=== PATIENT | male | born 1945 | race Caucasian/White ===

== ENCOUNTER 2020-01-03 07:39 | Outpatient (CLI) | payer MEDICARE, SELFPAY ==
--- NOTE | ~2020-01-03 | XR_ITS ---
EXAMINATION: XR chest 2V 01/03/2020 08:00 INDICATION: Prostate cancer PROCEDURE: 2 view chest COMPARISON: 10/25/2012 FINDINGS: The lungs are clear. The cardiomediastinal silhouette is within normal limits. There are no pleural effusions. There is no pneumothorax suspected. IMPRESSION: 1: NO ACUTE CARDIOPULMONARY DISEASE. Reviewed, dictated and finalized at location A.
--- NOTE | ~2020-01-03 | NM_ITS ---
EXAMINATION: NM bone scan whole body DATE: 01/03/2020 12:45 INDICATION: Prostate cancer. TECHNIQUE: 23.51 mCi Tc-99m HDP was administered intravenously. Delayed whole-body scintigrams were obtained. COMPARISON: CT abdomen and pelvis 01/03/2020, bone scan 04/12/2010 FINDINGS: There is increased activity at right L4-L5 facet joint correlating with osteoarthritis by C T. There is increased activity at right knee joint without radiographic comparison, likely osteoarthr itis. IMPRESSION: 1. No evidence of metastatic disease. Reviewed, dictated and finalized at location A.
--- NOTE | ~2020-01-03 | CT_ITS ---
EXAMINATION: CT abdomen pelvis w con DATE: 01/03/2020 08:29 INDICATION: Prostate cancer. TECHNIQUE: Computed tomography (CT) of the abdomen and pelvis was performed with 100 mL Omnipaque 350 intravenous contrast. Automated exposure control and iterative reconstruction technique were employe d. The dose-length product was 266.64 mGy-cm. COMPARISON: None. FINDINGS: The visualized portions of the lung bases demonstrate mild atelectasis. No pleural effusion . The heart size is normal. There are coronary artery calcifications. No pericardial effusion. Calcif ications in the liver are consistent with old granulomatous disease. The gallbladder, spleen, pancrea s, adrenal glands, and right kidney are normal. There are cysts in left kidney including peripelvic c ysts measuring up to 3.5 cm. The prostate is mildly enlarged. There are no dilated loops of bowel. Th e appendix is normal. There are no pathologically enlarged lymph nodes. There is no free intraperiton eal fluid. There is moderate lumbar spondylosis. IMPRESSION: 1. No evidence of metastatic disease. Reviewed, dictated and finalized at location A.
[2020-01-03 08:13] LABS: Estimated Glomerular Filt Rate > 60
== END 2020-01-03 07:40 | disposition home or self-care (01) ==
LOC: ANHIMG 07:43
PROVIDERS: PCP Internal Medicine; Visit Provider Urology
DX: C61 Malignant neoplasm of prostate (principal)
CPT/HCPCS: 36415; 71046; 74177; 78306; A9561; Q9967

== ENCOUNTER 2020-02-02 09:55 | Outpatient (CLI) | payer MEDICARE, SELFPAY ==
--- NOTE | 2020-02-02 11:02 | ECG_ITS ---
Measurements Intervals [place] Rate: 51 P: 62 [place]: 103 QRS: 32 QRSD: 83 T: 49 QT: 449 QTc: 417 Interpretive Statements SINUS BRADYCARDIA WITH SHORT [place] INTERVAL BASELINE ARTIFACT- I, II, III, AVR, AVL, AVF, V1-V6 BORDERLINE ECG Electronically Signed On 02-02-2020 11:48:24 CDT by Sarbjit Salgado D.O.
[2020-02-02 11:32] LABS: Basophils Percent Auto 0.5 % (0.2-1.2); Eosinophils Absolute Auto 0.1 K/mm3 (0-0.3); Eosinophils Percent Auto 0.9 % (0-4.4); Hematocrit 43.1 % (42.0-52.0); Immature Granulocyte Absolute 0.03 K/mm3 (0.00-0.031); Immature Granulocyte Percent A 0.5 % (0-0.5); Lymphocytes Absolute Auto 1.69 K/mm3 (0.9-3.2); Lymphocytes Percent Auto 26.3 % (18.3-44.2); Mean Corpuscular HGB Conc 32.5 g/dl (32-36); Mean Corpuscular Hemoglobin 29.3 pg (26-34); Mean Corpuscular Volume 90.2 fl (80-100); Mean Platelet Volume 11.1 fl (7.4-10.4); Monocytes Absolute Auto 0.6 K/mm3 (0.1-0.6); Monocytes Percent Auto 8.7 % (2.6-8.5); Neutrophils Absolute Auto 4.1 K/mm3 (1.3-6.7); Neutrophils Percent Auto 63.1 % (45.5-73.1); Platelet Count Result 239 k/mm3 (150-375); Red Blood Count 4.78 M/mm3 (4.6-6.20); Red Cell Distribution Width 13.2 % (11.5-14.5); White Blood Count 6.4 K/mm3 (4.5-10.0)
[2020-02-02 11:40] LABS: INR 0.9; Prothrombin Time 12.2 Seconds (11.1-14.7)
[2020-02-02 11:41] LABS: Partial Thromboplastin Time 25.3 SECONDS (22.3-36.8)
[2020-02-02 11:45] LABS: Add Urine Microscopic? YES; Appearance Urine Clear (Clear); Bilirubin Urine Negative (Negative); Blood Urine 1+ (Negative); Color Urine Yellow (Yellow); Glucose Urine UA Negative (Negative); Ketones Urine Negative (Negative); Leukocyte Esterase Ur Negative LEU/UL (Negative); Mucus Urine Rare /lpf; Nitrate Urine Negative (Negative); Protein Urine Negative (Negative); Urobilinogen Urine Negative mg/dL (<2.0); WBC Urine 0-3 /hpf
[2020-02-02 11:56] LABS: Alanine Aminotransferase 27 U/L (4-50); Albumin Level 4.4 g/dL (3.5-5.1); Alkaline Phosphatase 60 U/L (38-126); Aspartate Amino Transferase 46 U/L (17-59); Bilirubin,Total 0.5 mg/dL (0.2-1.3); Blood Urea Nitrogen 17 mg/dL (9-20); Carbon Dioxide 29 mmol/L (22-30); Chloride 105 mmol/L (98-107); Estimated Glomerular Filt Rate > 60; Glucose 97 mg/dL (75-110); Potassium 4.1 mmol/L (3.4-5.0); Sodium 137 mmol/L (137-145)
== END 2020-02-02 09:56 | disposition home or self-care (01) ==
PROVIDERS: PCP Internal Medicine; Visit Provider Urology
DX: Z01.818 Encounter for other preprocedural examination (principal); C61 Malignant neoplasm of prostate; I10 Essential (primary) hypertension
CPT/HCPCS: 36415; 80053; 81001; 85025; 85610; 85730; 86850; 86900; 86901; 93005

== ENCOUNTER 2020-02-07 00:24 | Outpatient (CLI) | payer MEDICARE, SELFPAY ==
[2020-02-07 18:39] LABS: SARS-CoV-2 RNA PCR Negative
== END 2020-02-07 00:25 | disposition home or self-care (01) ==
LOC: ANHCOVIDDT 00:25
PROVIDERS: PCP Internal Medicine; Visit Provider Urology
DX: Z01.812 Encounter for preprocedural laboratory examination (principal); Z20.828 Contact with and (suspected) exposure to other viral communicable diseases
CPT/HCPCS: 87635; C9803; U0003

== ENCOUNTER 2020-02-09 01:10 | Day surgery (SDC) | payer MEDICARE, SELFPAY ==
[2020-02-02 11:08] VITALS: BP 123/75; PULSE 63; RESP 18; TEMP 36.6; O2SAT 95; BMI 22.2
--- NOTE | 2020-02-07 07:16 | PM.IMHP ---
H&P: HPI History of Present Illness Chief complaint: prostate CA Narrative: Indra Hodgson is a 74 year old male Who was found in October 2019 to have a PSA of 21.1. At the time of initial presentation in 2015 with an elevated PSA patient was not agreeable to a biopsy. He eventually underwent prostate biopsy which showed 11 of 12 cores with [place] 4+3=7 adenocarcinoma. Additionally, he had extensive intraductal carcinoma on several of these biopsy cores. Staging CT scan of the abdomen and pelvis with contrast, bone scan and chest x-ray showed no evidence of metastatic disease. After exhaustive discussion of the therapeutic options for this high risk prostate cancer he has elected for robotic assisted radical prostatectomy with bilateral pelvic lymphadenectomy. He is aware he may need adjuvant therapy postoperatively. His prostate measured 29.6 g at the time of transrectal ultrasonography. Alternative treatment options (including active surveillance, radiation therapy in its various forms and androgen ablation) have been discussed. We've also discussed complications of this procedure including, but not limited to, failure to control his cancer, adverser cardiopulmonary events, rectal injury, need to convert to an open procedure, urinary incontinence and erectile dysfunction. Review of Systems Constitutional: Constitutional: Denies chills, Denies fatigue, Denies fever(s) and Denies headache(s) Eyes: Eyes: Denies blurry vision ENT: Denies vertigo, Denies dizziness, Denies headache(s) and Denies sore throat Cardiovascular: Cardiovascular: Denies chest pain, Denies syncope, Denies lightheadedness, Denies palpitations, Denies dyspnea and Denies dyspnea on exertion Respiratory: Respiratory: Denies hemoptysis, Denies dyspnea and Denies dyspnea on exertion Gastrointestinal: Gastrointestinal: Denies melena, Denies bloating, Denies hematochezia, Denies change in bowel habits, Denies change in stool character, Denies constipation, Denies diarrhea and Denies vomiting Genitourinary: Genitourinary: Denies hematuria, Denies dysuria, Denies testicular pain, Denies urinary frequency, Denies urinary hesitancy and Denies urinary urgency Integumentary/Breasts: Skin/Breast: Denies pruritus, Denies lesions and Denies rash Neurologic: Denies confusion, Denies vertigo, Denies dizziness, Denies syncope and Denies headache(s) Psychiatric: Psychiatric: Denies anxiety, Denies change in appetite and Denies confusion Endocrine: Endocrine: Denies fatigue and Denies palpitations PMFSH Past Medical History Medical History ASHD (arteriosclerotic heart disease) Benign essential hypertension BPH (benign prostatic hyperplasia) Colon cancer screening Encounter for general adult medical examination w/o abnormal findings Encounter for Medicare annual wellness exam Erectile dysfunction GERD (gastroesophageal reflux disease) Hyperlipidemia On ferry [place] agent drug therapy [place] on CPAP Psoriasis Seasonal allergies Social History Social History Smoking status: Never smoker Alcohol intake: current Gender identity (if verbalized by the patient): Male Meds Home Medications and Allergies Home Medications Medication Instructions Recorded Confirmed Type aspirin 81 mg tablet,delayed 81 mg PO DAILY 07/14/19 02/02/20 History release coenzyme Q10 100 mg capsule 100 mg PO DAILY 07/14/19 02/02/20 History finasteride 5 mg tablet 5 mg PO DAILY 07/14/19 02/02/20 History folic acid 1 mg tablet 1 mg PO DAILY 07/14/19 02/02/20 History lisinopril 5 mg tablet 5 mg PO DAILY 07/14/19 02/02/20 History mecobalamin (vitamin B12) 1,000 1,000 mcg SUBLINGUAL DAILY 07/14/19 02/02/20 History mcg disintegrating tablet,sublingual multivitamin 1 tablet PO DAILY 07/14/19 02/02/20 History sildenafil 50 mg tablet 50 mg PO DAILY PRN 07/14/19 02/02/20 History atorvastatin 40 m
[2020-02-09] VITALS (14 sets, daily range): BP systolic 94–173; BP diastolic 46–110; PULSE 53–78; RESP 14–20; TEMP 36.2–37.4; O2SAT 96–100
--- NOTE | 2020-02-09 06:48 | P.PNAN_ITS ---
Anes - Initial Pre Proc Eval Procedure: Operation Date: 02/09/20 07:30 Proposed Procedures p Robotic Assisted Laparoscopic Prostatectomy with Bilateral Pelvic Lymph Node Dissection - Facundo Estrada MD Date/Time: 02/09/20 06:49 Surgeon: Facundo Estrada MD Pre Op Diagnosis: prostate CA Patient Data Age: 74 Gender: M Height: 5 ft 8 in Weight: 66.3 kg Last Vital Signs Temp 36.6 C 02/02/20 11:08 Pulse 63 02/02/20 11:08 Resp 18 02/02/20 11:08 BP 123/75 02/02/20 11:08 Pulse Ox 95 02/02/20 11:08 Allergies Allergy/AdvReac Type Severity Reaction Status Date / Time No Known Allergies Allergy Unverified 02/02/20 11:02 Home Medications Medication Instructions Recorded Confirmed Type aspirin 81 mg tablet,delayed 81 mg PO DAILY 07/14/19 02/02/20 History release coenzyme Q10 100 mg capsule 100 mg PO DAILY 07/14/19 02/02/20 History finasteride 5 mg tablet 5 mg PO DAILY 07/14/19 02/02/20 History folic acid 1 mg tablet 1 mg PO DAILY 07/14/19 02/02/20 History lisinopril 5 mg tablet 5 mg PO DAILY 07/14/19 02/02/20 History mecobalamin (vitamin B12) 1,000 1,000 mcg SUBLINGUAL DAILY 07/14/19 02/02/20 History mcg disintegrating tablet,sublingual multivitamin 1 tablet PO DAILY 07/14/19 02/02/20 History sildenafil 50 mg tablet 50 mg PO DAILY PRN 07/14/19 02/02/20 History atorvastatin 40 mg tablet 40 mg PO DAILY #90 tablet 08/03/19 02/02/20 Rx betamethasone dipropionate 1 applic TOPICAL DAILY PRN 02/02/20 02/02/20 History Patient hx anesthesia problems: none Family hx anesthesia problems: none PMFSH Past Medical History Medical History ASHD (arteriosclerotic heart disease) Benign essential hypertension BPH (benign prostatic hyperplasia) Colon cancer screening Encounter for general adult medical examination w/o abnormal findings Encounter for Medicare annual wellness exam Erectile dysfunction GERD (gastroesophageal reflux disease) Hyperlipidemia On nursing home drug therapy [place] on CPAP Psoriasis Seasonal allergies Social History Social History Smoking status: Never smoker Alcohol intake: current Gender identity (if verbalized by the patient): Male Anes - Eval Final PreProcedure Day of Procedure 02/09/20 06:49 Patient weight: normal Heart: regular rate and rhythm Lungs: clear to auscultation Airway: Mallampati scale class 1 Neurological: alert and oriented Last oral intake: >/= 8 hours ASA classification: III Emergent: no Anesthetic plan: proceed Anesthesia type and monitoring: general ETT and standard monitoring Informed Consent: The patient's anesthetic plan and its attendant risks and benefits were discussed with the patient/family/POA. Questions were solicited an d answers provided to the satisfaction of the patient/family/POA.
[2020-02-09] MEDS: LACTATED RINGERS 1,000 ML 30 ML IV CONT ×2 (06:55→11:00)
--- NOTE | 2020-02-09 07:11 | WPDHPUPDATE1 ---
History and Physical Update Update Date/Time: 02/09/20 07:11 History and Physical has been reviewed, including an updated exam of the patient. There are NO changes in the patient's condition. Risks, benefits, and alternatives have been discussed and questions answered. Patient agrees to proceed with procedure.
[2020-02-09] MEDS: ceFAZolin 2 GM/D5W 50 ML 2 GM/50 ML BAG IVPB (07:27)
--- NOTE | 2020-02-09 11:10 | PM.PROC ---
Procedure Note - Detailed Date of procedure: 02/09/20 Pre-op diagnosis: prostate CA Post-op diagnosis: same Procedure performed: 1. Robotic-assisted radical prostatectomy. 2. Bilateral pelvic lymphadenectomy. Description of procedure: The patient was brought to the operative suite, where he was prepped and draped in routine sterile fashion while in a dorsal lithotomy, deep Trendelenburg position. A supraumbilical 10 mm trocar was placed after insufflation of the abdomen with a Veress needle. Three robotic ports were then placed under direct vision. Two of these were placed in the right lower quadrant - 10 cm and 20 cm lateral to, and in line with, the umbilicus. A third robotic trocar was placed 10 cm to the left of the umbilicus, and 20 cm to the left of the umbilicus, a 12 mm standard laparoscopic trocar was placed to be used as an assistant director of public works port. Lastly, a 5 mm trocar was placed in the left upper quadrant midway between the umbilicus and the left robotic trocar. Attention was then turned to the prostatectomy. I opted for a posterior approach in this patient. An incision was made in the parietal peritoneum along the posterior bladder/posterior prostate about 2 cm above the reflection of the peritoneum over the anterior rectum. The seminal vesicles and vas deferens were immediately identified. Dissection is undertaken in a fashion so as to avoid electrocautery as much as possible, particularly near the tips of the seminal vesicles. Dissection was also carried out in the midline so as to avoid any encounters with the ureters. The vas deferens and the seminal vesicles were dissected in their entirety to the base of the prostate. The plane anterior to Denoviller's fascia, anterior to the rectum and posterior to the prostate was then developed. I then dropped the bladder by incising the anterior parietal peritoneum just lateral to the median umbilical ligaments bilaterally. The bladder was dropped from the anterior abdominal and pelvic wall. The endopelvic fascia was identified and incised bilaterally, allowing for dissection of the posterior-lateral aspect of the prostate. The puboprostatic ligaments were transected near their origin from the posterior pubic ramus. This posterior lateral dissection of the prostate is also undertaken in a fashion so as to avoid electrocautery as much as possible. The dorsal vein of the penis is then secured with an 0 -Vicryl ligature. Attention is then turned to the bladder neck. The anterior bladder neck is incised at the vesico-prostatic junction. The previously placed urethral catheter was drawn through the urethrotomy. A very small bladder neck was maintained throughout the remainder of this dissection. The posterior bladder neck was incised in a fashion so as to avoid any injury to the ureteral orifices. Again, the small aperture of the bladder neck was maintained. The previously dissected vas deferens and the seminal vesicles were brought through the posterior bladder neck incision. The lateral prostatic pedicles were then carefully dissected from the lateral aspect of the prostate bilaterally. The prostatic pedicles were secured with Weck clips and transected. The neurovascular bundles were carefully dissected from the posterior-lateral aspect of the prostate. The dorsal vein of the penis was incised with electrocautery. Using cold scissors, the urethra was incised. After withdrawing the previously placed urethral catheter, the posterior urethra was sharply incised, as was the rectalurethralis muscle. Attention was then turned to a bilateral pelvic lymphadenectomy. The limits of this dissection were similar bilaterally. Specifically, the limits were the bifurcation of the common iliac vein proximally, the inguinal ligament distally, the obturator nerve posteriorly and the anterior aspect to the external iliac vein laterally. This dissection was undertaken with care to avoid any injury to the obturator nerve. The
--- NOTE | 2020-02-09 11:20 | SUR.PHASEI ---
1105; PT SHIVERING. 1120; PT AWAKE AND ALERT. STILL SHIVERING.
[2020-02-09] MEDS: MEPERIDINE HCL INJ 50 MG/ML AMPUL 25 MG IV PUSH (11:27)
--- NOTE | 2020-02-09 12:37 | SUR.PHASEI ---
1130; DR BERG AT BEDSIDE. VISUALIZED BLOODY URINE IN [place]AN[place].
--- NOTE | 2020-02-09 12:40 | ADMGEN ---
This patient, Indra Hodgson, was admitted to 3 [facility] Surg Room 325-02. Patient/family oriented to hospital policies and general routines including ID bracelet, bed and alarms, visiting hours, pain management, procedures, bathroom and other care routines, personal items, smoking policy, room service/diet, and visiting hours. Valuables list has been completed. Information on how to activate the Rapid Response Team has been discussed. Patient/Family are encouraged to report perceived risks to care and to ask questions if they do not understand what they are told or what they should do.
--- NOTE | 2020-02-09 12:41 | SUR.PHASEI ---
1240; SPOUSE UPDATED AND GIVEN ROOM NUMBER.
[2020-02-09] MEDS: LACTATED RINGERS 1,000 ML 125 ML IV CONT ×2 (13:11→21:26)
[2020-02-10 01:40] VITALS: BP 104/57; PULSE 72; RESP 16; TEMP 36.9; O2SAT 97
[2020-02-10 06:20] LABS: Hematocrit 33.3 % (42.0-52.0)
[2020-02-10 06:23] VITALS: BP 105/53; PULSE 69; RESP 20; TEMP 36.9; O2SAT 97
[2020-02-10 06:23] LABS: Blood Urea Nitrogen 10 mg/dL (9-20); Calcium 7.9 mg/dL (8.4-10.2); Carbon Dioxide 27 mmol/L (22-30); Chloride 106 mmol/L (98-107); Estimated CRCL calculation 47 ml/min; Estimated Glomerular Filt Rate > 60; Glucose 107 mg/dL (75-110); Potassium 4.2 mmol/L (3.4-5.0); Sodium 135 mmol/L (137-145)
[2020-02-10] MEDS: LACTATED RINGERS 1,000 ML 125 ML IV CONT (06:49)
--- NOTE | 2020-02-10 09:32 | WPDUROPN2 ---
Progress Note: A&P Assessment and Plan (1) Prostate cancer: Code(s): C61 - Malignant neoplasm of prostate Status: Acute Assessment and Plan: Doing well POD #1. Likely home later this morning if ambulates and tolerates diet well. Subjective Subjective Date/Time Seen: 02/10/20 09:32 POD #1 RALP - comfortable, tolerating diet. Review of Systems Cardiovascular: Cardiovascular: Denies chest pain, Denies lightheadedness, Denies palpitations and Denies dyspnea Respiratory: Respiratory: Denies dyspnea Gastrointestinal: Gastrointestinal: Denies diarrhea, Denies nausea and Denies vomiting Genitourinary: Genitourinary: Denies hematuria and Denies dysuria Endocrine: Endocrine: Denies palpitations Exam Const: General: no acute distress Resp: Effort & Inspection: normal respiratory effort GI: Inspection: non-distended GI Palp: No abdominal tenderness and No Guarding due to palpation present (GI) Auscultation: normal bowel sounds Objective Data Vital Signs Vital Signs: Vital Signs - 24 hr 02/09/20 11:00 02/09/20 11:15 02/09/20 11:30 Temperature 97.1 F L 97.5 F L 98.2 F Pulse Rate 75 72 66 Respiratory Rate 14 16 18 Blood Pressure 116/98 H 173/110 H 123/50 L Pulse Oximetry 100 100 98 02/09/20 11:45 02/09/20 12:00 02/09/20 12:15 Temperature 98.3 F Pulse Rate 60 64 64 Respiratory Rate 16 18 14 Blood Pressure 110/58 L 111/56 L 101/55 L Pulse Oximetry 97 96 96 02/09/20 12:36 02/09/20 12:38 02/09/20 12:53 Temperature 98.5 F 98.5 F Pulse Rate 64 66 68 Respiratory Rate 16 18 18 Blood Pressure 102/56 L 94/54 L 101/47 L Pulse Oximetry 97 100 100 02/09/20 13:23 02/09/20 14:23 02/09/20 18:23 Temperature 97.8 F 98.9 F 99.3 F Pulse Rate 78 77 69 Respiratory Rate 18 20 18 Blood Pressure 106/54 L 102/58 L 109/46 L Pulse Oximetry 100 99 98 02/09/20 21:17 02/10/20 01:40 02/10/20 06:23 Temperature 98.4 F 98.4 F 98.4 F Pulse Rate 71 72 69 Respiratory Rate 20 16 20 Blood Pressure 113/61 104/57 L 105/53 L Pulse Oximetry 99 97 97 Intake/Output Intake/Output: Intake & Output 02/07/20 02/08/20 02/09/20 02/10/20 23:59 23:59 23:59 23:59 Intake Total 1890 1250 Output Total 200 1500 Balance 1690 -250 Meds/Results Medications: Active Medications Generic Name Dose Route Start Last Admin Trade Name Freq PRN Reason Stop Dose Admin Atorvastatin Calcium 40 mg 02/10/20 09:00 Lipitor PO DAILY CONCHA Folic Acid 1 mg 02/10/20 09:00 Folic Acid PO DAILY CONCHA Hyoscyamine 0.125 mg 02/09/20 12:38 Levsin Tablet SUBLINGUAL Q4H PRN Bladder Spasm Lactated Ringer's 1,000 mls @ 30 mls/hr 02/08/20 13:45 02/09/20 16:57 Lr - Lactated Ringers Iv IV CONT Not Given .Q24H CONCHA Lactated Ringer's 1,000 mls @ 125 mls/hr 02/09/20 12:38 02/10/20 06:49 Lr - Lactated Ringers Iv IV CONT 125 mls/hr .Q8H CONCHA Administration Levofloxacin 500 mg 02/10/20 09:00 Levaquin Tab PO DAILY CONCHA Lisinopril 5 mg 02/10/20 09:00 Prinivil PO DAILY CONCHA Naloxone HCl 0.1 mg 02/09/20 12:38 Narcan IV PUSH Q2M PRN Opiate Reversal Non-Formulary Medication 1 applic 02/09/20 12:38 Betamethasone Dipropionate TOPICAL DAILY PRN Rash Labs Labs: Laboratory Results - last 24 hr 02/10/20 02/10/20 05:42 05:42 Hgb 11.0 L D Hct 33.3 L Sodium 135 L Potassium 4.2 Chloride 106 Carbon Dioxide 27 BUN 10 D Creatinine 1.10 Estim Creat Clear Calc 47 Estimated GFR > 60 Glucose 107 Calcium 7.9 L
[2020-02-10] MEDS: lisinopriL 5 MG TABLET PO (09:53)
[2020-02-10] MEDS: FOLIC ACID 1 MG TABLET PO (09:53)
[2020-02-10] MEDS: ATORVASTATIN 40 MG TABLET PO (09:53)
--- NOTE | 2020-02-10 10:31 | PM.DS ---
DS: Admitting Diagnosis Admitting Diagnosis Admitting Diagnosis: Malignant neoplasm of prostate DS: Discharge Diagnosis Discharge Diagnosis (1) Prostate cancer: Code(s): C61 - Malignant neoplasm of prostate Status: Acute DS: Summary Time Spent with Patient Time attestation: Total time spent providing and/or coordinating discharge services:15 min. This patient was admitted on the morning of his planned robotic prostatectomy. This procedure was uneventful, as was his postoperative course. By the evening of the procedure he was sitting at the bedside in tolerating a liquid diet. The following morning he was ambulating freely and tolerating regular food. His catheter drainage remained essentially clear throughout. His postoperative hemoglobin and serum creatinine were unremarkable. At the time of discharge he has been instructed in appropriate care for his Moreira catheter with both a leg bag and bedside bag. He will be discharged with plans to follow-up in 1 week with a cystogram. Exam Const: General: no acute distress Resp: Effort & Inspection: normal respiratory effort GI: Inspection: non-distended GI Palp: No abdominal tenderness and No Guarding due to palpation present (GI) Auscultation: normal bowel sounds DS: Data Data Completed and Pending Pending studies at discharge: Pending at discharge 02/09/20 09:16 Surgical [PTH] Routine Surgical [PTH] Routine Labs on day of discharge: Labs from last 24 hours 02/10/20 02/10/20 05:42 05:42 Hgb 11.0 L D Hct 33.3 L Sodium 135 L Potassium 4.2 Chloride 106 Carbon Dioxide 27 BUN 10 D Creatinine 1.10 Estim Creat Clear Calc 47 Estimated GFR > 60 Glucose 107 Calcium 7.9 L Discharge Plan Discharge Patient Disposition: Home, Self-Care Discharge Instructions: 1) Moreira catheter -> leg bag / bedside bag at night. 2) No lifting/straining >15lbs. x3 weeks. 3) No driving x1-week. 4) Resume normal, pre-operative diet. 5) My office will contact regarding follow-up in 1-week with cystogram. Discharge Medications: New hydrocodone-acetaminophen 5-325 mg tablet 1 - 2 tablet PO Q6H PRN (Reason: pain) Qty: 20 RF: 0 ciprofloxacin HCl 500 mg tablet 500 mg PO Q12H Qty: 10 RF: 0 hyoscyamine sulfate 0.125 mg tablet 0.125 mg PO Q6H PRN (Reason: bladder spasms) Qty: 20 RF: 2 docusate sodium [Colace] 100 mg capsule 100 mg PO DAILY Qty: 30 RF: 0 Continued atorvastatin 40 mg tablet 40 mg PO DAILY Qty: 90 RF: 1 betamethasone dipropionate 0.05 % Cream 1 applic TOPICAL DAILY PRN (Reason: Rash) RF: 0 lisinopril 5 mg tablet 5 mg PO DAILY RF: 0 multivitamin Tablet 1 tablet PO DAILY RF: 0 sildenafil [Viagra] 50 mg tablet 50 mg PO DAILY PRN (Reason: Rash) RF: 0 mecobalamin (vitamin B12) 1,000 mcg tablet,disintegrating 1,000 mcg SUBLINGUAL DAILY RF: 0 folic acid 1 mg tablet 1 mg PO DAILY RF: 0 Held coenzyme Q10 [Co Q-10] 100 mg capsule 100 mg PO DAILY RF: 0 Hold Instructions: Resume on 02/15/20. aspirin [Ecotrin Low Strength] 81 mg tablet,delayed release (DR/EC) 81 mg PO DAILY RF: 0 Hold Instructions: Resume on 02/15/20. Discontinued finasteride 5 mg tablet 5 mg PO DAILY RF: 0
== END 2020-02-10 12:30 | disposition home or self-care (01) ==
LOC: ANHSURGERY 06:08 → ANH3MEDSUR 12:11
PROVIDERS: PCP Internal Medicine; Visit Provider Urology
PROC: 0VT04ZZ Resection of Prostate, Percutaneous Endoscopic Approach (ICD-10-PCS; CPT 55867; principal; 2020-02-09 07:30)
DX: C61 Malignant neoplasm of prostate (principal); I10 Essential (primary) hypertension; I25.10 Atherosclerotic heart disease of native coronary artery without angina pectoris; K21.9 Gastro-esophageal reflux disease without esophagitis; E78.5 Hyperlipidemia, unspecified; G47.33 Obstructive sleep apnea (adult) (pediatric); L40.9 Psoriasis, unspecified; Z79.82 Long term (current) use of aspirin
CPT/HCPCS: 55866; 38571; S2900; 36415; 80048; 85014; 85018; 88305; 88307; 88309; A9270; J0330; J0690; J2175; J2405; J2704; J3010; J7030; J7120

== ENCOUNTER 2020-02-17 10:52 | Outpatient (CLI) | payer MEDICARE, SELFPAY ==
--- NOTE | ~2020-02-17 | XR_ITS ---
XR cystogram DATE: 02/17/2020 11:41 INDICATION: Status post prostatectomy one week ago TECHNIQUE: Rig Manager images and subsequent images during and upon complete filling of the urinary bladder by gravity through the existing Moreira catheter, and following emptying of the contrast material from the urinary bladder COMPARISON: None FINDINGS: No osteosclerotic lesions are identified. There is trabeculation of the urinary bladder. Other than the Moreira catheter no filling defect is gonzalo ntified. No vesicoureteral reflux. No extravasation of contrast material from the bladder lumen. IMPRESSION: No extravasation of contrast material from the urinary bladder or vesicoureteral reflux o r bladder mass lesion is evident Mucosal trabeculation Reviewed, dictated and finalized at Location A. Reviewed, dictated and finalized at location A. IMPRESSION: No extravasation of contrast material from the urinary bladder or v esicoureteral reflux or bladder mass lesion is evident Mucosal trabeculation
== END 2020-02-17 10:53 | disposition home or self-care (01) ==
LOC: ANHIMG 10:52
PROVIDERS: PCP Internal Medicine; Visit Provider Urology
DX: C61 Malignant neoplasm of prostate (principal); N32.89 Other specified disorders of bladder
CPT/HCPCS: 51600; 74430; Q9967

== ENCOUNTER 2020-04-17 14:51 | Outpatient (CLI) | payer MEDICARE, SELFPAY ==
--- NOTE | ~2020-04-17 | XR_ITS ---
EXAMINATION: XR knee RT min 4V DATE: 04/17/2020 15:20 INDICATION: Right knee pain. TECHNIQUE: 6 views of right knee were obtained. COMPARISON: Right knee radiographs 12/04/2008 FINDINGS: There is varus angulation at the knee. No fracture. There is severe osteoarthritis of media l compartment and mild osteoarthritis of lateral and patellofemoral compartments. There is a small kn ee joint effusion. There are loose bodies in the posterior knee joint measuring up to 7 mm. IMPRESSION: 1. Severe right knee osteoarthritis. 2. Small right knee joint effusion with loose bodies. Reviewed, dictated and finalized at location B.
== END 2020-04-17 14:52 | disposition home or self-care (01) ==
LOC: ANHIMG 14:57
PROVIDERS: PCP Internal Medicine; Visit Provider Internal Medicine
DX: M25.561 Pain in right knee (principal); M17.11 Unilateral primary osteoarthritis, right knee; M25.461 Effusion, right knee; M23.41 Loose body in knee, right knee
CPT/HCPCS: 73564

== ENCOUNTER 2020-09-12 13:26 | Outpatient (CLI) | payer MEDICARE, SELFPAY ==
--- NOTE | ~2020-09-12 | CT_ITS ---
EXAMINATION: CT brain wo con DATE: 09/12/2020 13:59 INDICATION: Diminished cognitive function and awareness TECHNIQUE: Computed tomography (CT) of the head was performed without intravenous contrast. The mA wa s adjusted according to patient size. Iterative reconstruction technique was employed. Exam dose: 60 5.33 mGy-cm total exam DLP. COMPARISON: None FINDINGS: Bilateral carotid siphon internal carotid artery calcifications. Nonspecific diminished attenuation of the cerebral white matter, likely due to chronic small vessel i schemic changes. No intracranial mass lesion or hemorrhage or cerebrovascular accident is evident. No midline shift or mass effects. Mild cerebral volume loss consistent with chronological age. No subdural or epidural hematoma. No orbital mass lesion. The mastoid air cells and included paranasal sinuses are normally developed and aerated. No fracture or bone destruction of the cranial vault. IMPRESSION: Cerebral atherosclerosis; no acute intracranial finding Reviewed, dictated and finalized at Location A. Reviewed, dictated and finalized at location B. RN ARCHITECT
== END 2020-09-12 13:27 | disposition home or self-care (01) ==
PROVIDERS: PCP Internal Medicine; Visit Provider Internal Medicine
DX: R41.89 Other symptoms and signs involving cognitive functions and awareness (principal); I67.2 Cerebral atherosclerosis
CPT/HCPCS: 70450

== ENCOUNTER 2020-12-31 09:29 | Outpatient (CLI) | payer MEDICARE, SELFPAY ==
--- NOTE | ~2020-12-31 | XR_ITS ---
EXAMINATION: XR sacroiliac joints min 3V, XR lumbar spine 2-3V EXAM DATE: 12/31/2020 09:50 INDICATION: Right side lumbosacral pain, sciatica. TECHNIQUE: Lumber spine frontal, lateral, lateral L5-S1 projections for interpretation. Frontal and bilateral oblique projections of the sacroiliac joints. FINDINGS: Mild to moderate diffuse lumbar disc disease. Mild lumbar dextroscoliosis with a few yolis meters of left lateral subluxation L4 on L5. Moderate lower lumbar facet arthropathy. Sacroiliac join ts are unremarkable. Sacral arcuate lines appear intact. There is mild to moderate bilateral hip prim vincent osteoarthritis. Mild aortic arterial sclerosis. IMPRESSION: 1. Mild lumbar dextroscoliosis. 2. Mild to moderate disc disease, moderate facet arthropathy. 3. Unremarkable sacroiliac joints. Reviewed, dictated and finalized at location A. IMPRESSION: 1. Mild lumbar dextroscoliosis. 2. Mild to moderate disc disease, moderate facet arthropathy. 3. Unremarkable sacroiliac joints.
== END 2020-12-31 09:30 | disposition home or self-care (01) ==
PROVIDERS: PCP Internal Medicine; Visit Provider Internal Medicine
DX: M54.5 Low back pain (principal); G89.29 Other chronic pain; M25.551 Pain in right hip; M41.86 Other forms of scoliosis, lumbar region; M51.86 Other intervertebral disc disorders, lumbar region
CPT/HCPCS: 72100; 72202

== ENCOUNTER 2021-01-04 12:31 | Outpatient (CLI) | payer MEDICARE, SELFPAY ==
--- NOTE | ~2021-01-04 | MM_ITS ---
EXAMINATION: MM diagnostic mammo unilat LT HISTORY: Pain TECHNIQUE: Bilateral MLO and left cc views were performed . CAD analysis was submitted and interprete d. COMPARISON: None BREAST PARENCHYMAL COMPOSITION: The breasts are almost entirely fatty. FINDINGS: No suspicious mass, architectural distortion, malignant calcification, skin thickening or r etraction. IMPRESSION: 1. No mammographic evidence of malignancy 2. No recommendation BI-RADS Category 1: Negative Reviewed, dictated and finalized at location A.
== END 2021-01-04 12:32 | disposition home or self-care (01) ==
LOC: ANHIMG 12:33
PROVIDERS: PCP Internal Medicine; Visit Provider Internal Medicine
DX: N64.89 Other specified disorders of breast (principal); N64.4 Mastodynia
CPT/HCPCS: 77065

== ENCOUNTER 2021-05-09 07:38 | Outpatient (CLI) | payer MEDICARE, SELFPAY ==
--- NOTE | ~2021-05-09 | US_ITS ---
EXAMINATION: US abdomen limited DATE: 05/09/2021 07:59 INDICATION: Unspecified abdominal TECHNIQUE: Multiple grayscale and Doppler ultrasound images of the abdomen were obtained. COMPARISON: None available FINDINGS: The head and body of the pancreas are normal. The pancreatic tail is obscured by bowel gas. The liver is normal with normal echogenicity and echotexture. No surface nodularity. Normal hepatope tomasz flow in the main portal vein. The gallbladder is normal with no abnormal wall thickening, pericho lecystic fluid or stones. The normal common bile duct measures 3 mm. There was no sonographic Crow sign. IMPRESSION: 1. Normal sonographic study of the gallbladder. Reviewed, dictated and finalized at location A.
== END 2021-05-09 07:39 | disposition home or self-care (01) ==
PROVIDERS: PCP Internal Medicine; Visit Provider Internal Medicine
DX: R10.9 Unspecified abdominal pain (principal)
CPT/HCPCS: 76705

== ENCOUNTER 2022-01-16 12:30 | Outpatient (CLI) | payer MEDICARE, SELFPAY ==
--- NOTE | ~2022-01-16 | MMUS_ITS ---
EXAMINATION: MM diagnostic mammo unilat LT, US breast LT complete HISTORY: Left breast tenderness TECHNIQUE: Additional 3-D tomosynthesis images of the left breast were performed and synthetic 2-D im ages were generated. CAD analysis was submitted and interpreted. High resolution complete left breast ultrasound was performed. COMPARISON: 01/04/2021 BREAST PARENCHYMAL COMPOSITION: Breast composed of scattered areas of fibroglandular density FINDINGS: MAMMOGRAPHIC FINDINGS: There has been progression of asymmetric gynecomastia, left breast greater than right. No suspicious masses, calcifications or architectural distortion to suggest malignancy. ULTRASOUND: Complete US of all 4 quadrants of the left breast and retroareolar region was reviewed. There is hete rogeneous hypoechoic soft tissue in the subareolar location of the left breast, likely prominent nikolay st bud. No discrete mass is identified. No abnormal vascularity. IMPRESSION: 1. Probable benign asymmetric gynecomastia with focally prominent breast bud in the left subareolar l ocation. 2. Recommend 6 month follow-up left breast ultrasound BI-RADS category 3, probably benign findings. Reviewed, dictated and finalized at location A. IMPRESSION: 1. Probable benign asymmetric gynecomastia with focally prominent breast bud in the left subareolar location. 2. Recommend 6 month follow-up left breast ultrasound BI-RADS category 3, probably benign findings.
== END 2022-01-16 12:31 | disposition home or self-care (01) ==
PROVIDERS: PCP Internal Medicine; Visit Provider Internal Medicine
DX: N64.4 Mastodynia (principal)
CPT/HCPCS: 76641; 77065

== ENCOUNTER 2022-05-06 14:48 | Outpatient (CLI) | payer MEDICARE, SELFPAY ==
--- NOTE | ~2022-05-06 | CT_ITS ---
EXAMINATION: CT brain wo con DATE: 05/06/2022 15:16 INDICATION: Worsening cognition and memory. Headache. TECHNIQUE: Computed tomography (CT) of the head was performed without intravenous contrast. The mA wa s adjusted according to patient size. Iterative reconstruction technique was employed. Exam dose: 68 1.00 mGy-cm total exam DLP. COMPARISON: 09/12/2020 CT brain FINDINGS: No intracranial mass lesion or hemorrhage or cerebrovascular accident, midline shift or mas s effect effect is detected. There is nonspecific diminished attenuation of the cerebral white matter , likely due to chronic small vessel ischemic changes. Bilateral carotid siphon and supraclinoid internal carotid artery calcifications. No subdural or epid ural hematoma. Mildly prominent cerebral volume loss. No fracture or bone destruction of the cranial vault. Included paranasal sinuses and mastoid air cell s are normally developed and aerated. IMPRESSION: Cerebral atherosclerosis and chronic small vessel ischemic changes of the cerebral white matter Moderate cerebral volume loss No acute intracranial finding Reviewed, dictated and finalized at Location A. Reviewed, dictated and finalized at location B.
== END 2022-05-06 14:49 | disposition home or self-care (01) ==
PROVIDERS: PCP Internal Medicine; Visit Provider Internal Medicine
DX: R41.89 Other symptoms and signs involving cognitive functions and awareness (principal); F09 Unspecified mental disorder due to known physiological condition; I67.2 Cerebral atherosclerosis
CPT/HCPCS: 70450

== ENCOUNTER 2022-05-14 09:17 | Outpatient (CLI) | payer MEDICARE, SELFPAY ==
--- NOTE | ~2022-05-14 | CT_ITS ---
EXAMINATION: CT abdomen pelvis w con DATE: 05/14/2022 10:04 INDICATION: Left lower quadrant abdominal pain. TECHNIQUE: Computed tomography (CT) of the abdomen and pelvis was performed with 100 mL Omnipaque 350 intravenous contrast. Automated exposure control and iterative reconstruction technique were employe d. The dose-length product was 284.28 mGy-cm. COMPARISON: CT abdomen and pelvis 01/03/2020 FINDINGS: The visualized portions of the lung bases demonstrate mild atelectasis. No pleural effusion . The heart size is normal. No pericardial effusion. The liver and spleen are normal. The gallbladder is normal in size. The pancreas, adrenal glands, and right kidney are normal. There are cysts in lef t kidney including peripelvic cysts measuring up to 3.7 cm. There are no dilated loops of bowel. The appendix is normal. There are no pathologically enlarged lymph nodes. There is no free intraperitonea l fluid. There is moderate lumbar spondylosis. There is an 8 mm sclerotic lesion in L5 vertebral body . IMPRESSION: 1. Worsened 8 mm sclerotic lesion in L5 vertebral body suspicious for metastatic disease. Reviewed, dictated and finalized at location A. IMPRESSION: 1. Worsened 8 mm sclerotic lesion in L5 vertebral body suspicious for metastati c disease.
[2022-05-14 09:45] LABS: Basophils Percent Auto 0.4 % (0.2-1.2); Eosinophils Percent Auto 0.4 % (0-4.4); Hemoglobin 13.6 g/dL (14.0-18.0); Immature Granulocyte Absolute 0.05 K/mm3 (0.00-0.031); Immature Granulocyte Percent A 0.5 % (0-0.5); Lymphocytes Absolute Auto 0.96 K/mm3 (0.9-3.2); Lymphocytes Percent Auto 10.1 % (18.3-44.2); Mean Corpuscular HGB Conc 32.4 g/dl (32-36); Mean Corpuscular Hemoglobin 29.7 pg (26-34); Mean Corpuscular Volume 91.7 fl (80-100); Mean Platelet Volume 10.9 fl (7.4-10.4); Monocytes Absolute Auto 0.8 K/mm3 (0.1-0.6); Neutrophils Absolute Auto 7.7 K/mm3 (1.3-6.7); Neutrophils Percent Auto 80.6 % (45.5-73.1); Platelet Count Result 224 k/mm3 (150-375); Red Blood Count 4.58 M/mm3 (4.6-6.20); Red Cell Distribution Width 13.9 % (11.5-14.5); White Blood Count 9.6 K/mm3 (4.5-10.0)
[2022-05-14 10:01] LABS: Estimated Glomerular Filt Rate > 60
[2022-05-14 10:01] LABS: Alanine Aminotransferase 29 U/L (6-50); Albumin Level 4.3 g/dL (3.5-5.1); Alkaline Phosphatase 59 U/L (38-126); Anion Gap 9 mmol/L (8-16); Aspartate Amino Transferase 37 U/L (17-59); Bilirubin,Total 0.8 mg/dL (0.2-1.3); Blood Urea Nitrogen 15 mg/dL (9-20); Calcium 9.1 mg/dL (8.4-10.2); Carbon Dioxide 24 mmol/L (22-30); Chloride 107 mmol/L (98-107); Estimated Glomerular Filt Rate > 60; Glucose 103 mg/dL (65-110); Potassium 4.4 mmol/L (3.4-5.0); Sodium 140 mmol/L (137-145)
== END 2022-05-14 09:18 | disposition home or self-care (01) ==
PROVIDERS: PCP Internal Medicine; Visit Provider Internal Medicine
DX: R10.32 Left lower quadrant pain (principal); R19.7 Diarrhea, unspecified; R11.2 Nausea with vomiting, unspecified; M47.816 Spondylosis without myelopathy or radiculopathy, lumbar region; M89.9 Disorder of bone, unspecified
CPT/HCPCS: 36415; 74177; 80053; 85025; Q9967

== ENCOUNTER 2022-05-20 12:09 | Outpatient (CLI) | payer MEDICARE, SELFPAY | END 2022-05-20 12:10 | disposition home or self-care (01) | PROVIDERS: PCP Internal Medicine; Visit Provider Internal Medicine | DX: R19.7 Diarrhea, unspecified (principal); R10.9 Unspecified abdominal pain | CPT/HCPCS: 87045; 87177; 87209; 87427; 89055 ==

== ENCOUNTER 2022-05-29 08:24 | Outpatient (CLI) | payer MEDICARE, SELFPAY ==
--- NOTE | ~2022-05-29 | NM_ITS ---
NM bone scan whole body INDICATION: Prostate cancer TECHNIQUE: The patient was injected with 25.9 mCi Tc 99m HDP. Gamma camera images of the region of i nterest and whole body were obtained. Automated exposure control and iterative reconstruction POI were employed. COMPARISON: Bone scan dated 01/03/2020 FINDINGS: There is increased activity at the right L4-5 facet joint consistent with osteoarthritis. T here is mild increase of the uptake in the right knee, likely arthritis. There is mild bilateral symm etric uptake in the shoulders and wrists, likely degenerative joint disease. There is normal uptake i n the kidneys. There is mild paracentral uptake on the left in the cervical spine on posterior view a nd on the right in the midthoracic spine, likely degenerative, although correlation with x-rays recom mended. There is stable mild uptake at the costochondral junction of the left mid rib anteriorly, unc hanged. IMPRESSION: 1: Mild multifocal uptake in the cervical and thoracic spine, likely degenerative, although correlat ion with x-ray recommended. 2: Age appropriate polyarticular joint uptake, consistent with degenerative joint disease. Reviewed, dictated and finalized at location A. IMPRESSION: 1: Mild multifocal uptake in the cervical and thoracic spine, likely degenerat sheba, although correlation with x-ray recommended. 2: Age appropriate polyarticular joint uptake, consistent with degenerative terri int disease.
== END 2022-05-29 08:25 | disposition home or self-care (01) ==
PROVIDERS: PCP Internal Medicine; Visit Provider Urology
DX: C61 Malignant neoplasm of prostate (principal)
CPT/HCPCS: 78306; A9561

== ENCOUNTER 2023-04-13 12:02 | Outpatient (CLI) | payer MEDICARE, SELFPAY ==
--- NOTE | ~2023-04-13 | PE_ITS ---
EXAMINATION: PET_PETPSMAST_PT DATE: 04/13/2023 14:42 INDICATION: Prostate cancer. TECHNIQUE: 9.677 mCi of piflufolastat F-18 was administered intravenously. Low dose computed tomograp hy (CT) images were acquired from the base of the brain to the proximal thighs for attenuation correc tion and anatomic localization. Automated exposure control was employed. Dose-length product (DLP) wa s 481 mGy-cm. Positron emission tomography (PET) images were acquired in the same distribution. COMPARISON: CT abdomen and pelvis 05/14/2022, bone scan 05/29/2022 FINDINGS: Head/neck: There are no pathologically enlarged lymph nodes. Chest: There is mild scarring at the lung apices. No pleural effusion. The heart size is normal. Ther e are coronary artery calcifications. No pericardial effusion. There is left-sided gynecomastia. Ther e is a sclerotic lesion in T8 vertebral body with increased activity. Abdomen/pelvis/proximal thighs: Calcifications in the liver are consistent with old granulomatous dis ease. The gallbladder, spleen, pancreas, adrenal glands, and right kidney are normal. There are cysts in left kidney measuring up to 1.8 cm. There are changes of prostatectomy. The appendix is normal. T here are no pathologically enlarged lymph nodes. There is no free intraperitoneal fluid. There are sc lerotic lesions with increased activity in L5 vertebral body, left L5 posterior elements, right L4 tr ansverse process, and L2 vertebral body. There is a sclerotic lesion in L5 vertebral body. For exampl e, a 1.5 cm sclerotic lesion in L5 vertebral body demonstrates maximum SUV of 48.8. IMPRESSION: 1. Bone lesions with increased activity, consistent with metastatic disease, worsened from 05/14/2022. Reviewed, dictated and finalized at location A. IMPRESSION: 1. Bone lesions with increased activity, consistent with metastatic disease, wo rsened from 05/14/2022.
== END 2023-04-13 12:03 | disposition home or self-care (01) ==
PROVIDERS: PCP Internal Medicine; Visit Provider Urology
DX: C61 Malignant neoplasm of prostate (principal); M89.9 Disorder of bone, unspecified
CPT/HCPCS: 78815; A9595

== ENCOUNTER 2023-05-14 14:25 | Outpatient (CLI) | payer MEDICARE, SELFPAY ==
[2023-05-14 16:09] LABS: Basophils Percent Auto 0.5 % (0.2-1.2); Eosinophils Absolute Auto 0.1 K/mm3 (0-0.3); Eosinophils Percent Auto 1.7 % (0-4.4); Hematocrit 45.4 % (42.0-52.0); Hemoglobin 14.4 g/dL (14.0-18.0); Immature Granulocyte Absolute 0.03 K/mm3 (0.00-0.031); Immature Granulocyte Percent A 0.5 % (0-0.5); Lymphocytes Absolute Auto 1.27 K/mm3 (0.9-3.2); Lymphocytes Percent Auto 19.1 % (18.3-44.2); Mean Corpuscular HGB Conc 31.7 g/dl (32-36); Mean Corpuscular Hemoglobin 29.9 pg (26-34); Mean Corpuscular Volume 94.4 fl (80-100); Mean Platelet Volume 11.4 fl (7.4-10.4); Monocytes Absolute Auto 0.5 K/mm3 (0.1-0.6); Monocytes Percent Auto 8.1 % (2.6-8.5); Neutrophils Absolute Auto 4.7 K/mm3 (1.3-6.7); Neutrophils Percent Auto 70.1 % (45.5-73.1); Platelet Count Result 238 k/mm3 (150-375); Red Blood Count 4.81 M/mm3 (4.6-6.20); Red Cell Distribution Width 14.2 % (11.5-14.5); White Blood Count 6.7 K/mm3 (4.5-10.0)
[2023-05-14 16:20] LABS: Alanine Aminotransferase 56 U/L (6-50); Albumin Level 4.4 g/dL (3.5-5.1); Alkaline Phosphatase 60 U/L (38-126); Anion Gap 5 mmol/L (8-16); Aspartate Amino Transferase 62 U/L (17-59); Bilirubin,Total 0.5 mg/dL (0.2-1.3); Blood Urea Nitrogen 16 mg/dL (9-20); Calcium 9.2 mg/dL (8.4-10.2); Carbon Dioxide 29 mmol/L (22-30); Chloride 106 mmol/L (98-107); Estimated Glomerular Filt Rate > 60; Glucose 88 mg/dL (65-110); Potassium 4.4 mmol/L (3.4-5.0); Sodium 140 mmol/L (137-145)
== END 2023-05-14 14:26 | disposition home or self-care (01) ==
LOC: ANHLAB 14:27
PROVIDERS: Internal Medicine; PCP Urology; Visit Provider Internal Medicine Hematology & Oncology
DX: C61 Malignant neoplasm of prostate (principal); C79.51 Secondary malignant neoplasm of bone
CPT/HCPCS: 36415; 80053; 84153; 85025

== ENCOUNTER 2023-07-14 10:54 | Outpatient (CLI) | payer MEDICARE, SELFPAY ==
[2023-07-14 11:11] LABS: Basophils Percent Auto 0.5 % (0.2-1.2); Eosinophils Absolute Auto 0.1 K/mm3 (0-0.3); Eosinophils Percent Auto 1.3 % (0-4.4); Hematocrit 38.4 % (42.0-52.0); Hemoglobin 12.9 g/dL (14.0-18.0); Immature Granulocyte Absolute 0.03 K/mm3 (0.00-0.031); Immature Granulocyte Percent A 0.8 % (0-0.5); Lymphocytes Absolute Auto 0.83 K/mm3 (0.9-3.2); Lymphocytes Percent Auto 21.2 % (18.3-44.2); Mean Corpuscular HGB Conc 33.6 g/dl (32-36); Mean Corpuscular Hemoglobin 30.9 pg (26-34); Mean Corpuscular Volume 92.1 fl (80-100); Mean Platelet Volume 10.8 fl (7.4-10.4); Monocytes Absolute Auto 0.5 K/mm3 (0.1-0.6); Monocytes Percent Auto 11.8 % (2.6-8.5); Neutrophils Absolute Auto 2.5 K/mm3 (1.3-6.7); Neutrophils Percent Auto 64.4 % (45.5-73.1); Platelet Count Result 164 k/mm3 (150-375); Red Blood Count 4.17 M/mm3 (4.6-6.20); Red Cell Distribution Width 13.5 % (11.5-14.5); White Blood Count 3.9 K/mm3 (4.5-10.0)
[2023-07-14 11:17] LABS: Blood Urea Nitrogen 10 mg/dL (8-26); Carbon Dioxide 24 mmol/L (22-30); Chloride 105 mmol/L (98-109); Estimated Glomerular Filt Rate > 60; Glucose 94 mg/dL (70-105); Ionized Calcium (POC) 1.21 mmol/L (1.11-1.31); Potassium 4.3 mmol/L (3.5-4.9); Sodium 142 mmol/L (138-146)
[2023-07-14 12:49] LABS: Alanine Aminotransferase 14 U/L (6-50); Albumin Level 3.9 g/dL (3.5-5.1); Alkaline Phosphatase 54 U/L (38-126); Anion Gap 6 mmol/L (8-16); Aspartate Amino Transferase 28 U/L (17-59); Bilirubin,Total 0.5 mg/dL (0.2-1.3); Blood Urea Nitrogen 11 mg/dL (9-20); Calcium 9.6 mg/dL (8.4-10.2); Carbon Dioxide 26 mmol/L (22-30); Chloride 106 mmol/L (98-107); Estimated Glomerular Filt Rate > 60; Glucose 93 mg/dL (65-110); Potassium 4.3 mmol/L (3.4-5.0); Sodium 138 mmol/L (137-145)
== END 2023-07-14 10:55 | disposition home or self-care (01) ==
PROVIDERS: Visit Provider Internal Medicine Hematology & Oncology
DX: C61 Malignant neoplasm of prostate (principal); C79.51 Secondary malignant neoplasm of bone
CPT/HCPCS: 36415; 80047; 80053; 85025

== ENCOUNTER 2023-08-08 10:19 | Inpatient (IN) | payer MEDICARE, SELFPAY ==
[2023-08-08] VITALS (11 sets, daily range): BP systolic 80–119; BP diastolic 49–81; PULSE 68–96; RESP 14–20; TEMP 36.3–38; O2SAT 88–100
--- NOTE | ~2023-08-08 | NM_ITS ---
EXAMINATION: NM bone scan whole body DATE: 08/11/2023 13:21 INDICATION: Bone metastases TECHNIQUE: 27.3 mCi Tc-99m HDP was administered intravenously. Delayed whole-body scintigrams were o btained. COMPARISON: [facility] PET study dated 04/13/[address] dated 08/08/2023 and 05/14/2023 FINDINGS: There is likely degenerative joint centered uptake at the bilateral hands and feet most prominent at the right first metatarsophalangeal joint and at the bilateral knees, right greater than left. Additi onal mild likely degenerative joint centered uptake at the bilateral sternoclavicular and acromioclav icular joints. Again seen is likely degenerative mild uptake associated with a few of the facet joint s bilaterally in the cervical spine and along the left side of the mid thoracic to upper lumbar spine . Mild likely discogenic uptake at the right side of the L4-L5 disc space with corresponding degenera tive endplate changes and CT . Mild uptake along both sides of the sternum likely related to costocho ndral calcification. There are a couple foci of mild uptake at the L5 central vertebral body and right transverse processe s which corresponds to enlarging sclerotic bone lesions on CT and marked PSMA uptake on prior PET sca n consistent with metastatic disease. There are a few additional smaller but relatively intensely PSM A avid metastatic bone lesions in the T8 and L2 vertebral bodies which are unable to be clearly visua lized on the current study. No other bone lesions identified which are suspicious for metastatic dise ase. IMPRESSION: 1. No significant change in mild uptake associated with a couple sclerotic metastatic lesions at the L5 vertebral body which are significantly more conspicuous on the PSMA PET imaging. No other evident metastatic lesions identified although 2 of the previous noted lesions at T8 and L2, evident on the p rior PET study, are essentially indiscernible on the current bone scan. Reviewed, dictated and finalized at location A. 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 No significant change in mild uptake associated with a couple sclerotic meta static lesions at the L5 vertebral body which are significantly more conspicuou s on the PSMA PET imaging. No other evident metastatic lesions identified altho ugh 2 of the previous noted lesions at T8 and L2, evident on the prior PET stud y, are essentially indiscernible on the current bone scan.
--- NOTE | ~2023-08-08 | CT_ITS ---
EXAMINATION: CT abd pelvis lumbar w con DATE: 08/08/2023 15:36 INDICATION: History of prostate cancer. Right hip and flank pain. TECHNIQUE: Computed tomography (CT) of the abdomen, pelvis and lumbar spine was performed with 100 cc Omnipaque 350 intravenous contrast. The dose-length product was 530.08 mGy-cm. Automated exposure co ntrol and iterative reconstruction technique were employed. COMPARISON: CT dated 05/14/2022 FINDINGS: There is dependent atelectasis. No significant pleural effusion. Trace pericardial effusion . Heart size normal. There are small left renal cyst. There are left renal parapelvic cysts. There ar e soft tissue nodules in the left anterior abdominal wall which may represent injection granulomas, a lthough metastatic disease is not excluded. Bladder wall is thickened. The liver, spleen, pancreas, adrenal glands and right kidney are unremarkable. No hydronephrosis. Gal lbladder is present. There are sclerotic lesions of L2 and L5, compatible with metastatic disease. Th ere is osteoarthritis of the hips. There is scoliosis with moderate lumbar spondylosis. There is mild disc narrowing at L2-3 and L4-5. There is mild multilevel facet hypertrophy. IMPRESSION: 1. Sclerotic lesions of L2 and L5, compatible with metastatic disease. 2: Soft tissue subcutaneous nodules left anterior abdominal wall, images 106-108. These may represent sites of recent injection (clinically correlate), although metastatic disease is not excluded, altho ugh atypical for prostate cancer. Reviewed, dictated and finalized at location A. 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 Sclerotic lesions of L2 and L5, compatible with metastatic disease. 2: Soft tissue subcutaneous nodules left anterior abdominal wall, images 106-10 8. These may represent sites of recent injection (clinically correlate), althou gh metastatic disease is not excluded, although atypical for prostate cancer.
--- NOTE | ~2023-08-08 | US_ITS ---
US renal BI 08/09/2023 17:26 Procedure: Realtime transabdominal ultrasound of the kidneys and bladder. Indication: Abnormal urinalysis Comparison: CT dated 08/08/2023 Findings: Right renal echotexture is normal without hydronephrosis, contour deforming mass or renal c alculi. Right kidney measures 10.1 cm. There is mild left renal caliectasis. No solid masses, stones or cysts. Left kidney measures 11.8 cm. Bladder within normal limits. Impression: 1: Left renal caliectasis. Reviewed, dictated and finalized at location A. ERY TECH Impression: 1: Left renal caliectasis.
--- NOTE | 2023-08-08 12:37 | ED.WEAKNESS ---
HPI - Weakness General Chief complaint: Weakness Stated complaint: back and knee pain Time Seen by Provider: 08/08/23 12:32 Source: patient and family () History of Present Illness HPI Narrative: This is an 78 yo male who presents with complaint of generalized weakness for the past 2 days though particularly throughout his back and bilateral legs. He has been having whole body aches but also notes right hip pain. No trauma. 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 They called his PCP who advised he come to the ED. His last bowel movement was at least 2 days ago as he has otherwise been in bed all of yesterday. He does get hormone injections in his lower left abdomen. Denies any fevers, cough, shortness of breath, or diarrhea. He denies any abdominal pain but then states he experiences pain with movement. No history of kidney stones. He is incontinent of urine at baseline following his surgery 3 years ago. He finished radiation 1.5 months ago and receives Xcondi (spelling?) cancer infusions every 6 months, last dose was on . He is also having right flank pain and initially denies hematuria or penile discharge. Related Data Home Medications Medication Instructions Recorded Confirmed aspirin 81 mg tablet,delayed 81 mg PO DAILY 07/14/19 08/08/23 release (Ecotrin Low Strength) multivitamin 1 tablet PO DAILY 07/14/19 08/08/23 coenzyme Q10 75 mg capsule (Ultra 75 mg PO DAILY 02/28/21 08/08/23 CoQ10) rosuvastatin 40 mg tablet 40 mg PO DAILY 12/18/21 08/08/23 acetaminophen 500 mg tablet 1,000 mg PO TID PRN pain 07/21/23 08/08/23 (Tylenol Extra Strength) Allergies Allergy/AdvReac Type Severity Reaction Status Date / Time No Known Allergies Allergy Verified 08/08/23 10:44 [facility] Past Medical History Medical History (Updated 08/09/23 @ 09:36 by Emily Martínez MD) Benign essential hypertension Benign prostatic hyperplasia Coronary artery disease Gastroesophageal reflux disease Hearing loss Hyperlipidemia Memory impairment Obstructive sleep apnea Osteoarthritis of right knee Prostate cancer Psoriasis Seasonal allergies Skin cancer Surgical History Surgical History (Updated 08/08/23 @ 22:27 by Patricia Sánchez PA-C) History of arthroscopy of right knee History of cardiac catheterization History of coronary artery stent placement History of robot-assisted laparoscopic radical prostatectomy (02/09/20) Family History Family History Other Cancer Heart disease Hypertension Social History Social History (Updated 08/09/23 @ 00:24 by Patricia Sánchez PA-C) Social History: Surrogate medical decision maker: Colleen Ewing, daughter. Code status: Full code. Smoking packs per day: 1 Smoking cigarettes per day: 20.0 Years smoked: 30 Smoking pack-years: 30.00 Smoking status: Former smoker Tobacco type: cigarettes Alcohol intake: never Substance use: never Substance use type: does not use Lack of Transportation: No Lack of Food: Never True Current Housing: I Have Housing Concerned About Future Housing: No Difficulty Paying Gas/Electric Bills: YES Difficulty Paying for Meds: YES Currently Unemployed: YES Education: Grade School Difficulty w/ Childcare or Family Care: No Living arrangements: with family Additional living arrangements comments: Lives with spouse. Occupation/Education: retired Additional occupation/education comments: Retired from [employer]. Spiritual care concerns: No Exam Narrative: GENERAL: Well-appearing, well-nourished HEAD: Normocephalic, atraumatic. EYES: Sclera non injected or icteric ENT: Nares clear, no rhinorrhea or epistaxis. NECK: Supple. CHEST: Speaking without labored effort. No respiratory distress. HEART: Regular rate and rhythm. Strong femoral pulses. ABDOMEN: Soft, nontender, nondistended, small firm nodules in LLQ (nubia
[2023-08-08 13:31] LABS: Influenza A QL RT-PCR Negative (Negative); Influenza B QL RT-PCR Negative (Negative); SARS-CoV-2 RNA PCR Negative (Negative)
[2023-08-08] MEDS: SODIUM CHLORIDE 0.9% IV 1,000 ML 999 ML IV CONT (13:45)
[2023-08-08 13:52] LABS: Basophils Percent Auto 0.5 % (0.2-1.2); Hematocrit 37.1 % (42.0-52.0); Hemoglobin 12.1 g/dL (14.0-18.0); Immature Granulocyte Absolute 0.04 K/mm3 (0.00-0.031); Immature Granulocyte Percent A 0.7 % (0-0.5); Lymphocytes Absolute Auto 0.22 K/mm3 (0.9-3.2); Lymphocytes Percent Auto 3.8 % (18.3-44.2); Mean Corpuscular HGB Conc 32.6 g/dl (32-36); Mean Corpuscular Hemoglobin 30.4 pg (26-34); Mean Corpuscular Volume 93.2 fl (80-100); Mean Platelet Volume 10.7 fl (7.4-10.4); Monocytes Absolute Auto 0.2 K/mm3 (0.1-0.6); Monocytes Percent Auto 3.8 % (2.6-8.5); Neutrophils Absolute Auto 5.2 K/mm3 (1.3-6.7); Neutrophils Percent Auto 91.2 % (45.5-73.1); Platelet Count Result 191 k/mm3 (150-375); Red Blood Count 3.98 M/mm3 (4.6-6.20); Red Cell Distribution Width 14.1 % (11.5-14.5); White Blood Count 5.7 K/mm3 (4.5-10.0)
[2023-08-08 14:02] LABS: Alanine Aminotransferase 15 U/L (6-50); Albumin Level 3.9 g/dL (3.5-5.1); Alkaline Phosphatase 63 U/L (38-126); Anion Gap 11 mmol/L (8-16); Aspartate Amino Transferase 34 U/L (17-59); Bilirubin,Total 0.5 mg/dL (0.2-1.3); Blood Urea Nitrogen 16 mg/dL (9-20); Calcium 8.8 mg/dL (8.4-10.2); Carbon Dioxide 23 mmol/L (22-30); Chloride 102 mmol/L (98-107); Creatine Kinase 79 U/L (55-170); Estimated CRCL calculation 53 ml/min; Estimated Glomerular Filt Rate > 60; Glucose 123 mg/dL (65-110); Magnesium 1.9 mg/dL (1.6-2.3); Potassium 4.1 mmol/L (3.4-5.0); Sodium 136 mmol/L (137-145)
[2023-08-08 15:04] LABS: Appearance Urine Clear (Clear); Bacteria Urine None Seen /hpf; Bilirubin Urine Negative (Negative); Blood Urine 2+ (Negative); Color Urine Dark Yellow (Yellow); Glucose Urine UA Negative (Negative); Ketones Urine 1+ mg/dL (Negative); Leukocyte Esterase Ur Negative LEU/UL (Negative); Nitrate Urine Negative (Negative); Non Pathogenic Casts 0-2; Protein Urine 2+ mg/dL (Negative); Specific Grav Ur 1.029 (1.001-1.035); Squamous Epithelial Cell Urine Occasional /hpf (Few); WBC Urine 0-5 /hpf
[2023-08-08 15:08] LABS: Add Urine Microscopic? YES
[2023-08-08] MEDS: MORPHINE SULFATE (*CRX) 4 MG/ML INJ IV PUSH (16:20)
[2023-08-08] MEDS: LACTATED RINGERS 1,000 ML 125 ML IV CONT (19:22)
--- NOTE | 2023-08-08 19:28 | PC.NURSE ---
This patient, Indra Hodgson, was admitted to 3 Med Surg Room 310-01. Patient/family oriented to hospital policies and general routines including ID bracelet, bed and alarms, visiting hours, pain management, procedures, bathroom and other care routines, personal items, smoking policy, room service/diet, and visiting hours. Information on how to activate the Rapid Response Team has been discussed. Patient/Family are encouraged to report perceived risks to care and to ask questions if they do not understand what they are told or what they should do.
[2023-08-08] MEDS: ACETAMINOPHEN 325 MG TABLET 650 MG PO (20:00)
[2023-08-08] MEDS: HYDROcodone/acetaminophen (*CRX) 5-325 MG TABLET 1 TAB PO (20:23)
--- NOTE | 2023-08-08 22:19 | PM.IMHP ---
H&P: HPI History of Present Illness Date/Time: 08/08/23 21:45 Chief Complaint: Weakness and back pain. Narrative: This is a pleasant 78-year-old male with prostate cancer metastatic to the bones, hypertension, dyslipidemia, gastroesophageal reflux disease, memory impairment, and sleep apnea who presented to the emergency department via private vehicle for evaluation of weakness and back pain. The patient provides the following history. He is a fair historian and some of the following history is supplemented via a review of his EMR. He is currently being treated for metastatic prostate cancer and he has low back pain related to sclerotic lesions. The pain seems to have gotten worse recently and is centered more so in the left mid back/flank region. He has difficulties describing the pain and reports that he is only taking Tylenol for that at home without much benefit. The pain seems to be worse with movement and palpation. He also complains of pain and weakness in both knees but he denies falls and injury. Overall he has diffuse body aches and after speaking with his primary doctor he was sent into the ED for evaluation. He denies fever, chills, sweats, sinus congestion, sore throat, chest pain, cough, shortness of breath, nausea, vomiting, diarrhea, dysuria, and hematuria. In the ED: He was afebrile on arrival. Blood pressure was as low as 80/70 in the ED but has improved with IV fluids. CMP and CBC were pretty unremarkable with the only outliers being a hemoglobin of 12.1 and a sodium of 136. Urine demonstrated 1+ ketones, 2+ blood, 2+ protein, and [address] scan was ordered with and without contrast however unfortunately was only done with contrast limited examination, namely ruling out kidney stones. CT scan did show sclerotic lesions compatible with metastatic disease and soft tissue subcutaneous nodules which correlate with injection sites from chemo treatments. No hydronephrosis was seen. He is being admitted in this setting for pain control and to rule out kidney stone. Review of Systems Review of Systems: Twelve systems were reviewed and are negative except for as per HPI. [facility] Past Medical History Medical History (Updated 08/09/23 @ 00:25 by Patricia Sánchez PA-C) Benign essential hypertension Benign prostatic hyperplasia Coronary artery disease Gastroesophageal reflux disease Hearing loss Hyperlipidemia Memory impairment Obstructive sleep apnea Osteoarthritis of right knee Prostate cancer Psoriasis Seasonal allergies Skin cancer Surgical History Surgical History (Updated 08/08/23 @ 22:27 by Patricia Sánchez PA-C) History of arthroscopy of right knee History of cardiac catheterization History of coronary artery stent placement History of robot-assisted laparoscopic radical prostatectomy (02/09/20) Family History Family History Other Cancer Heart disease Hypertension Social History Social History (Updated 08/09/23 @ 00:24 by Patricia Sánchez PA-C) Social History: Surrogate medical decision maker: Colleen Ewing, daughter. Code status: Full code. Smoking packs per day: 1 Smoking cigarettes per day: 20.0 Years smoked: 30 Smoking pack-years: 30.00 Smoking status: Former smoker Tobacco type: cigarettes Alcohol intake: never Substance use: never Substance use type: does not use Lack of Transportation: No Lack of Food: Never True Current Housing: I Have Housing Concerned About Future Housing: No Difficulty Paying Gas/Electric Bills: YES Difficulty Paying for Meds: YES Currently Unemployed: YES Education: Grade School Difficulty w/ Childcare or Family Care: No Living arrangements: with family Additional living arrangements comments: Lives with spouse. Occupation/Education: retired Additional occupation/education comments: Retired from [employer]. Spiritual care concerns: No Meds Home Medicat
[2023-08-09 05:34] VITALS: BP 115/57; PULSE 81; RESP 14; TEMP 37.1; O2SAT 96
[2023-08-09 07:08] LABS: Hematocrit 33.6 % (42.0-52.0); Mean Corpuscular HGB Conc 32.7 g/dl (32-36); Mean Corpuscular Hemoglobin 30.8 pg (26-34); Mean Corpuscular Volume 94.1 fl (80-100); Mean Platelet Volume 10.7 fl (7.4-10.4); Platelet Count Result 142 k/mm3 (150-375); Red Blood Count 3.57 M/mm3 (4.6-6.20); Red Cell Distribution Width 14.1 % (11.5-14.5); White Blood Count 3.5 K/mm3 (4.5-10.0)
[2023-08-09 07:23] LABS: Anion Gap 7 mmol/L (8-16); Blood Urea Nitrogen 13 mg/dL (9-20); CRP 7.3 mg/dL (<1.0); Calcium 7.7 mg/dL (8.4-10.2); Carbon Dioxide 23 mmol/L (22-30); Chloride 105 mmol/L (98-107); Estimated CRCL calculation 59 ml/min; Estimated Glomerular Filt Rate > 60; Glucose 95 mg/dL (65-110); Magnesium 1.9 mg/dL (1.6-2.3); Potassium 3.7 mmol/L (3.4-5.0); Sodium 135 mmol/L (137-145)
[2023-08-09] MEDS: EZETIMIBE 10 MG TABLET BY MOUTH (09:29)
[2023-08-09] MEDS: CYANOCOBALAMIN 1,000 MCG TABLET 1000 MCG PO (09:29)
[2023-08-09] MEDS: ASPIRIN 81 MG ENTERIC TABLET PO (09:29)
[2023-08-09] MEDS: MULTIVITAMINS THERAPEUTIC TAB (*BKC) 1 TABLET PO (09:29)
[2023-08-09] MEDS: ACETAMINOPHEN 325 MG TABLET 650 MG PO ×2 (09:38→17:57)
--- NOTE | 2023-08-09 10:44 | PM.IMPN ---
Progress Note: A&P Assessment and Plan (1) Abnormal urinalysis: Code(s): R82.90 - Unspecified abnormal findings in urine Status: Acute Assessment and Plan: Rocephin initiated 08/09, follow-up urine culture (2) Left flank pain: Code(s): R10.9 - Unspecified abdominal pain Status: Acute Assessment and Plan: See above (3) Dehydration: Code(s): E86.0 - Dehydration Status: Acute Assessment and Plan: Gentle IV fluid hydration, follow-up labs (4) Prostate cancer: Code(s): C61 - Malignant neoplasm of prostate Status: Acute Assessment and Plan: Managed outpatient (5) Pain from bone metastases: Code(s): G89.3 - Neoplasm related pain (acute) (chronic); C79.51 - Secondary malignant neoplasm of bone Status: Acute Assessment and Plan: Pain management, consider oncology consult if patient will be here for a while Oxycodone as needed Plan DVT prophylaxis with SCDs GI prophylaxis not indicated Code status full code at bedside is concerned the patient's Xtandi has been causing decreased appetite and somnolence over the last 2 months and would like to discuss decreasing or stopping this medication with Oncology. This should be done on an outpatient basis. 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 No overnight events noted. No chest pain or shortness of breath. No nausea, vomiting or diarrhea. No fevers or chills. Still feels a little weak with continued back pain unchanged. Review of Systems Review of Systems: 12 point review of systems was assessed and was negative except as noted in the HPI Exam Narrative: General: No acute distress, alert and oriented per baseline HEENT: Atraumatic, normocephalic, mucous membranes moist CV: Regular rate and rhythm, S1, S2 Lungs: Clear to auscultation bilaterally, no rales or crackles noted, no wheezes, good air entry Abdomen: Soft, nontender, nondistended Extremities: Normal to inspection Skin: No rashes noted, no lesions or wounds seen Psych: Euthymic, normal affect Objective Data Vital Signs Vital Signs: Vital Signs - 24 hr 08/08/23 12:43 08/08/23 18:56 08/08/23 12:31 Temperature Pulse Rate 91 68 95 Respiratory Rate 16 16 20 Blood Pressure 119/72 104/72 119/72 Pulse Oximetry 98 99 100 Oxygen Delivery 08/08/23 13:01 08/08/23 13:15 08/08/23 13:16 Temperature Pulse Rate 92 91 92 Respiratory Rate 19 19 17 Blood Pressure 80/70 L 111/81 Pulse Oximetry 88 L 94 99 Oxygen Delivery 08/08/23 13:30 08/08/23 13:31 08/08/23 21:35 Temperature 100.4 F H Pulse Rate 91 93 88 Respiratory Rate 19 19 14 Blood Pressure 103/62 119/49 L Pulse Oximetry 100 98 97 Oxygen Delivery 08/08/23 23:07 08/09/23 05:34 08/09/23 08:00 Temperature 98.9 F 98.7 F Pulse Rate 81 Respiratory Rate 14 Blood Pressure 115/57 L Pulse Oximetry 96 Oxygen Delivery Room Air Intake/Output Intake/Output: Intake & Output 08/06/23 08/07/23 08/08/23 08/09/23 23:59 23:59 23:59 23:59 Intake Total 1000 750 Output Total 30 200 Balance 970 550 Meds/Results Medications: Active Medications Generic Name Dose Route Start Last Admin Trade Name Isidoroq PRN Reason Stop Dose Admin Acetaminophen 650 mg 08/08/23 18:05 08/09/23 09:38 Acetaminophen 325 Mg Tablet PO 650 mg Q4H PRN Administration Mild Pain (1-3) or Fever Hydrocodone Bitart/Acetaminophen 1 tab 08/08/23 18:05 08/08/23 20:23 Hydrocodone/Acetaminophen (*Crx) 5-325 Mg Tablet PO 1 tab Q4H PRN Administration Pain Rated 4-6 Aspirin 81 mg 08/09/23 09:00 08/09/23 09:29 Aspirin 81 Mg Enteric Tablet PO 81 mg DAILY CONCHA
[2023-08-09] MEDS: cefTRIAXone 2 GM/NS 100 ML 2 GM/100 ML BAG IVPB (12:38)
[2023-08-09 14:00] VITALS: BP 104/60; PULSE 76; RESP 12; TEMP 36.7; O2SAT 97
[2023-08-09 19:41] VITALS: O2SAT 97
[2023-08-09] MEDS: MIRTAZAPINE 15 MG TABLET PO (21:04)
[2023-08-09 22:00] VITALS: BP 102/51; PULSE 83; RESP 18; TEMP 37.5; O2SAT 92
[2023-08-09] MEDS: HYDROcodone/acetaminophen (*CRX) 5-325 MG TABLET 1 TAB PO (23:56)
[2023-08-10 05:14] VITALS: BP 110/60; PULSE 78; RESP 18; TEMP 37; O2SAT 94
[2023-08-10 06:47] LABS: Basophils Percent Auto 0.3 % (0.2-1.2); Eosinophils Absolute Auto 0.1 K/mm3 (0-0.3); Eosinophils Percent Auto 3.9 % (0-4.4); Hematocrit 31.4 % (42.0-52.0); Hemoglobin 10.6 g/dL (14.0-18.0); Immature Granulocyte Absolute 0.01 K/mm3 (0.00-0.031); Immature Granulocyte Percent A 0.3 % (0-0.5); Lymphocytes Absolute Auto 0.39 K/mm3 (0.9-3.2); Lymphocytes Percent Auto 11.7 % (18.3-44.2); Mean Corpuscular HGB Conc 33.8 g/dl (32-36); Mean Corpuscular Hemoglobin 30.9 pg (26-34); Mean Corpuscular Volume 91.5 fl (80-100); Mean Platelet Volume 9.9 fl (7.4-10.4); Monocytes Absolute Auto 0.2 K/mm3 (0.1-0.6); Monocytes Percent Auto 6.3 % (2.6-8.5); Neutrophils Absolute Auto 2.6 K/mm3 (1.3-6.7); Neutrophils Percent Auto 77.5 % (45.5-73.1); Platelet Count Result 154 k/mm3 (150-375); Red Blood Count 3.43 M/mm3 (4.6-6.20); Red Cell Distribution Width 13.8 % (11.5-14.5); White Blood Count 3.3 K/mm3 (4.5-10.0)
[2023-08-10 07:06] LABS: Alanine Aminotransferase 13 U/L (6-50); Albumin Level 2.8 g/dL (3.5-5.1); Alkaline Phosphatase 54 U/L (38-126); Anion Gap 5 mmol/L (8-16); Aspartate Amino Transferase 31 U/L (17-59); Bilirubin,Total 0.3 mg/dL (0.2-1.3); Blood Urea Nitrogen 10 mg/dL (9-20); Calcium 7.4 mg/dL (8.4-10.2); Carbon Dioxide 24 mmol/L (22-30); Chloride 109 mmol/L (98-107); Estimated CRCL calculation 59 ml/min; Estimated Glomerular Filt Rate > 60; Glucose 102 mg/dL (65-110); Potassium 3.1 mmol/L (3.4-5.0); Sodium 138 mmol/L (137-145)
[2023-08-10] MEDS: CYPROHEPTADINE HCL 4 MG TABLET PO ×2 (09:22→16:53)
[2023-08-10] MEDS: ASPIRIN 81 MG ENTERIC TABLET PO (09:22)
[2023-08-10] MEDS: MULTIVITAMINS THERAPEUTIC TAB (*BKC) 1 TABLET PO (09:22)
[2023-08-10] MEDS: CYANOCOBALAMIN 1,000 MCG TABLET 1000 MCG PO (09:22)
[2023-08-10] MEDS: EZETIMIBE 10 MG TABLET BY MOUTH (09:22)
[2023-08-10] MEDS: ACETAMINOPHEN 325 MG TABLET 650 MG PO (09:30)
--- NOTE | 2023-08-10 10:18 | PDONCCN ---
HPI - Date of Consult Date/Time: 08/10/23 18:31 <Jorge Luis Salazar - 08/10/23 18:33> 08/10/23 10:18 <Lilly Alves - 08/10/23 10:29> Requesting Physician: Tori Rincon DO <Jorge Luis Salazar - 08/10/23 18:33> Tori Rincon DO <Lilly Alves - 08/10/23 10:29> Primary Care Provider: Moy Fowler MD <Jorge Luis Salazar - 08/10/23 18:33> Moy Fowler MD <Lilly Alves - 08/10/23 10:29> - Consult Narrative Reason for consult: Prostate Cancer <Lilly Alves - 08/10/23 10:29> Narrative: Indra Hodgson is a 78 year old male <Jorge Luis Salazar - 08/10/23 18:33> Indra Hodgson is a 78 year old male with a PMH of prostate cancer metastatic to the bone diagnosed in 2019. He is s/p adjuvant IMRT to the pelvis and prostate bed with short term ADT completed in . Radiation therapy to the spine started in 06/15/23 and ended 06/24/23. Since then he was been on maintenance Xtandi started in May 2023 and Lupron every 6 months since April 2023. He was admitted for worsening fatigue, bone pain, and mild confusion. We last saw him in office 07/14/23 and has been doing well overall and tolerating Xtandi well with mild bone pain. He reports having increased hip and thoracic pain with movement. He rates his pain 3-4 without movement. He was taking tylenol and ibuprofen without relief. His and daughter state they could not get him out of bed due to the pain. Since he has been admitted, they report he is doing much better mentally and pain has improved after holding his Xtandi. <Lilly Alves - 08/10/23 10:29> Review of Systems - Review of Systems All systems reviewed & are unremarkable except as noted in HPI and bel <Lilly Alves - 08/10/23 10:29> - Musculoskeletal Reports back pain, Reports body aches <Lilly Alves - 08/10/23 10:29> [facility] Medical History: Medical History (Last Updated 08/09/23 @ 00:25 by Patricia Sánchez PA-C) Benign essential hypertension Benign prostatic hyperplasia Coronary artery disease Gastroesophageal reflux disease Hearing loss Hyperlipidemia Memory impairment Obstructive sleep apnea Osteoarthritis of right knee Prostate cancer Psoriasis Seasonal allergies Skin cancer <MarieJorge Luisestelita Oro - 08/10/23 18:33> Medical History (Last Updated 08/09/23 @ 00:25 by Patricia Sánchez PA-C) Benign essential hypertension Benign prostatic hyperplasia Coronary artery disease Gastroesophageal reflux disease Hearing loss Hyperlipidemia Memory impairment Obstructive sleep apnea Osteoarthritis of right knee Prostate cancer Psoriasis Seasonal allergies Skin cancer <Lilly Alves - 08/10/23 10:29> Surgical History: Surgical History (Last Updated 08/08/23 @ 22:27 by Patricia Sánchez PA-C) History of arthroscopy of right knee History of cardiac catheterization History of coronary artery stent placement History of robot-assisted laparoscopic radical prostatectomy Onset Date: 02/09/20 <Jorge Luis Salazar - 08/10/23 18:33> Surgical History (Last Updated 08/08/23 @ 22:27 by Patricia Sánchez PA-C) History of arthroscopy of right knee History of cardiac catheterization History of coronary artery stent placement History of robot-assisted laparoscopic radical prostatectomy Onset Date: 02/09/20 <Lilly Alves - 08/10/23 10:29> Family History: Family History (Last Reviewed 08/08/23 @ 22:28 by Patricia Sánchez PA-C) Other Cancer Heart disease Hypertension <Jorge Luis Salazar - 08/10/23 18:33> Family History (Last Reviewed 08/08/23 @ 22:28 by Patricia Sánchez PA-C) Other Cancer Heart disease Hypertension <Lilly Alves - 08/10/23 10:29> - Social History Social History: Social History (Last Updated 08/09/23 @ 00:24 by Patricia Sánchez PA-C) Alcohol Use: Alcohol intake: never Substance Use: [facility]
[2023-08-10 10:30] VITALS: TEMP 37
[2023-08-10 12:07] VITALS: BMI 21.8
--- NOTE | 2023-08-10 12:24 | PM.IMPN ---
Progress Note: A&P Assessment and Plan (1) Abnormal urinalysis: Code(s): R82.90 - Unspecified abnormal findings in urine Status: Acute Assessment and Plan: Rocephin initiated 08/09, follow-up urine culture (2) Left flank pain: Code(s): R10.9 - Unspecified abdominal pain Status: Acute Assessment and Plan: See above (3) Dehydration: Code(s): E86.0 - Dehydration Status: Acute Assessment and Plan: resolved (4) Prostate cancer: Code(s): C61 - Malignant neoplasm of prostate Status: Acute Assessment and Plan: Managed outpatient (5) Pain from bone metastases: Code(s): G89.3 - Neoplasm related pain (acute) (chronic); C79.51 - Secondary malignant neoplasm of bone Status: Acute Assessment and Plan: Pain management, oncology consult recommending stopping the xtandi Oxycodone as needed Plan DVT prophylaxis with SCDs GI prophylaxis not indicated Code status full code at bedside is concerned the patient's Xtandi has been causing decreased appetite and somnolence over the last 2 months and would like to discuss decreasing or stopping this medication with Oncology. This should be done on an outpatient basis. Subjective Date/time seen: 08/10/23 12:24 Interval history: 78-year-old male with prostate cancer metastatic to the bones, hypertension, dyslipidemia, gastroesophageal reflux disease, memory impairment, and sleep apnea here with weakness and back pain. No overnight events noted. No chest pain or shortness of breath. No nausea, vomiting or diarrhea. No fevers or chills. Still feels a little weak with continued back pain unchanged. Review of Systems Review of Systems: 12 point review of systems was assessed and was negative except as noted in the HPI Exam Narrative: General: No acute distress, alert and oriented per baseline HEENT: Atraumatic, normocephalic, mucous membranes moist CV: Regular rate and rhythm, S1, S2 Lungs: Clear to auscultation bilaterally, no rales or crackles noted, no wheezes, good air entry Abdomen: Soft, nontender, nondistended Extremities: Normal to inspection Skin: No rashes noted, no lesions or wounds seen Psych: Euthymic, normal affect Objective Data Vital Signs Vital Signs: Vital Signs - 24 hr 08/09/23 14:00 08/09/23 19:41 08/09/23 22:00 Temperature 98.1 F 99.5 F Pulse Rate 76 83 Respiratory Rate 12 18 Blood Pressure 104/60 102/51 L Pulse Oximetry 97 97 92 Oxygen Delivery Room Air 08/10/23 05:14 08/10/23 09:22 08/10/23 10:30 Temperature 98.6 F 98.6 F Pulse Rate 78 Respiratory Rate 18 Blood Pressure 110/60 Pulse Oximetry 94 Oxygen Delivery Room Air Intake/Output Intake/Output: Intake & Output 08/07/23 08/08/23 08/09/23 08/10/23 23:59 23:59 23:59 23:59 Intake Total 1000 1530 480 Output Total 30 1400 400 Balance 970 130 80 Meds/Results Medications: Active Medications Generic Name Dose Route Start Last Admin Trade Name Freq PRN Reason Stop Dose Admin Acetaminophen 650 mg 08/08/23 18:05 08/10/23 09:30 Acetaminophen 325 Mg Tablet PO 650 mg Q4H PRN Administration Mild Pain (1-3) or Fever Hydrocodone Bitart/Acetaminophen 1 tab 08/08/23 18:05 08/09/23 23:56 Hydrocodone/Acetaminophen (*Crx) 5-325 Mg Tablet PO 1 tab Q4H PRN Administration Pain Rated 4-6 Aspirin 81 mg 08/09/23 09:00 08/10/23 09:22 Aspirin 81 Mg Enteric Tablet PO 81 mg DAILY CONCHA Administration Cyanocobalamin 1,000 mcg 08/09/23 09:00 08/10/23 09:22 Cyanocobalamin 1,000 Mcg Tablet PO 1,000 mcg DAILY CONCHA Administration Cyproheptadine HCl 4 mg 08/08/23 22:40 08/10/23 09:22 Cyproheptadine Hcl 4 Mg Tablet PO 4 mg BID CONCHA Administration Ezetimibe 10 mg 08/09/23 09:00 08/10/23 09:22 Ezetimibe 10 Mg Tablet BY MOUTH 10 mg QAM CONCHA Administration Ceftriaxone Sodi
[2023-08-10] MEDS: cefTRIAXone 2 GM/NS 100 ML 2 GM/100 ML BAG IVPB (12:25)
[2023-08-10 14:00] VITALS: BP 111/70; PULSE 86; RESP 18; TEMP 36.1; O2SAT 98
[2023-08-10 18:53] LABS: Prostate Specific Antigen < 0.1 ng/mL (< OR = 4.0)
[2023-08-10 21:05] VITALS: BP 114/61; PULSE 80; RESP 19; TEMP 36.6; O2SAT 97
[2023-08-10] MEDS: MIRTAZAPINE 15 MG TABLET PO (22:10)
[2023-08-11 06:00] VITALS: BP 102/73; PULSE 80; RESP 20; TEMP 37; O2SAT 99
[2023-08-11 06:05] VITALS: BP 122/84
[2023-08-11 06:10] VITALS: BP 119/73
[2023-08-11 07:02] LABS: Basophils Percent Auto 0.8 % (0.2-1.2); Eosinophils Absolute Auto 0.1 K/mm3 (0-0.3); Eosinophils Percent Auto 1.3 % (0-4.4); Hemoglobin 10.8 g/dL (14.0-18.0); Immature Granulocyte Absolute 0.01 K/mm3 (0.00-0.031); Immature Granulocyte Percent A 0.3 % (0-0.5); Lymphocytes Absolute Auto 0.44 K/mm3 (0.9-3.2); Lymphocytes Percent Auto 11.5 % (18.3-44.2); Mean Corpuscular HGB Conc 33.8 g/dl (32-36); Mean Corpuscular Hemoglobin 30.9 pg (26-34); Mean Corpuscular Volume 91.7 fl (80-100); Mean Platelet Volume 10.5 fl (7.4-10.4); Monocytes Absolute Auto 0.4 K/mm3 (0.1-0.6); Monocytes Percent Auto 9.4 % (2.6-8.5); Neutrophils Percent Auto 76.7 % (45.5-73.1); Platelet Count Result 180 k/mm3 (150-375); Red Blood Count 3.49 M/mm3 (4.6-6.20); Red Cell Distribution Width 13.9 % (11.5-14.5); White Blood Count 3.8 K/mm3 (4.5-10.0)
[2023-08-11 07:38] LABS: Alanine Aminotransferase 13 U/L (6-50); Albumin Level 3.1 g/dL (3.5-5.1); Alkaline Phosphatase 57 U/L (38-126); Anion Gap 8 mmol/L (8-16); Aspartate Amino Transferase 32 U/L (17-59); Bilirubin,Total 0.4 mg/dL (0.2-1.3); Blood Urea Nitrogen 8 mg/dL (9-20); Calcium 7.5 mg/dL (8.4-10.2); Carbon Dioxide 23 mmol/L (22-30); Chloride 107 mmol/L (98-107); Estimated CRCL calculation 69 ml/min; Estimated Glomerular Filt Rate > 60; Glucose 104 mg/dL (65-110); Potassium 3.4 mmol/L (3.4-5.0); Sodium 138 mmol/L (137-145)
[2023-08-11 08:00] VITALS: PULSE 80; RESP 20; O2SAT 99
[2023-08-11 08:37] LABS: Prostate Specific Antigen < 0.1 ng/mL (< OR = 4.0)
[2023-08-11] MEDS: CYPROHEPTADINE HCL 4 MG TABLET PO (09:02)
[2023-08-11] MEDS: MULTIVITAMINS THERAPEUTIC TAB (*BKC) 1 TABLET PO (09:02)
[2023-08-11] MEDS: EZETIMIBE 10 MG TABLET BY MOUTH (09:02)
[2023-08-11] MEDS: ASPIRIN 81 MG ENTERIC TABLET PO (09:03)
[2023-08-11] MEDS: CYANOCOBALAMIN 1,000 MCG TABLET 1000 MCG PO (09:03)
--- NOTE | 2023-08-11 11:05 | PM.DS ---
DS: Admitting Diagnosis Discharge Date 08/11/23 Admitting Diagnosis back pain DS: Discharge Diagnosis Discharge Diagnosis (1) Abnormal urinalysis: Code(s): R82.90 - Unspecified abnormal findings in urine Status: Acute Assessment and Plan: Rocephin initiated 08/09, follow-up urine culture (2) Left flank pain: Code(s): R10.9 - Unspecified abdominal pain Status: Acute Assessment and Plan: See above (3) Dehydration: Code(s): E86.0 - Dehydration Status: Acute Assessment and Plan: resolved (4) Prostate cancer: Code(s): C61 - Malignant neoplasm of prostate Status: Acute Assessment and Plan: Managed outpatient (5) Pain from bone metastases: Code(s): G89.3 - Neoplasm related pain (acute) (chronic); C79.51 - Secondary malignant neoplasm of bone Status: Acute Assessment and Plan: Pain management, oncology consult recommending stopping the xtandi Oxycodone as needed Plan DVT prophylaxis with SCDs GI prophylaxis not indicated Code status full code at bedside is concerned the patient's Xtandi has been causing decreased appetite and somnolence over the last 2 months and would like to discuss decreasing or stopping this medication with Oncology. This should be done on an outpatient basis. DS: Summary Hospital Course Hospital Course: 78-year-old male with prostate cancer metastatic to the bones, hypertension, dyslipidemia, gastroesophageal reflux disease, memory impairment, and sleep apnea here with weakness and back pain. Oncology was consulted on Xtandi was discontinued as this could be contributing to his back pain. Pain improved with oxycodone. Patient was also placed on antibiotic for possible UTI, culture still pending. However, symptoms improved significantly. Therefore he will be discharged on oral antibiotics and follow-up urine culture outpatient. Please see above and med rec for details. Patient was discharged in stable condition with close outpatient follow-up. Time Spent with Patient Time attestation: Total time spent providing and/or coordinating discharge services: Exam Narrative: General: No acute distress, alert and oriented per baseline HEENT: Atraumatic, normocephalic, mucous membranes moist CV: Regular rate and rhythm, S1, S2 Lungs: Clear to auscultation bilaterally, no rales or crackles noted, no wheezes, good air entry Abdomen: Soft, nontender, nondistended Extremities: Normal to inspection Skin: No rashes noted, no lesions or wounds seen Psych: Euthymic, normal affect DS: Data Data Completed and Pending Labs on day of discharge: Labs from last 24 hours 08/11/23 08/11/23 08/10/23 06:25 06:24 06:23 WBC 3.8 L RBC 3.49 L Hgb 10.8 L Hct 32.0 L MCV 91.7 MCH 30.9 MCHC 33.8 RDW 13.9 Plt Count 180 MPV 10.5 H Immature Gran % (Auto) 0.3 Neut % (Auto) 76.7 H Lymph % (Auto) 11.5 L Cowley % (Auto) 9.4 H Eos % (Auto) 1.3 Baso % (Auto) 0.8 Lymph # (Auto) 0.44 L Cowley # (Auto) 0.4 Eos # (Auto) 0.1 Baso # (Auto) 0.0 Abs Immat Gran (auto) 0.01 Absolute Neuts (auto) 3.0 Absolute Nucleated RBC 0.0 Nucleated RBC % 0.0 Sodium 138 Potassium 3.4 Chloride 107 Carbon Dioxide 23 Anion Gap 8 BUN 8 L Creatinine 0.70 Estim Creat Clear Calc 69 Estimated GFR > 60 Glucose 104 Calcium 7.5 L Total Bilirubin 0.4 AST 32 ALT 13 Alkaline Phosphatase 57 Total Protein 6.0 L Albumin 3.1 L Prostate Specific Ag < 0.1 < 0.1 Preliminary micro results at discharge 08/09/23 23:48 Urine Culture - Preliminary Clean Catch Midstream 08/09/23 15:29 Blood Culture - Preliminary Blood 08/09/23 13:16 Blood Culture - Preliminary Blood Discharge Plan Discharge Attending physician on discharge: Tori Rincon Consulting providers: [place]
--- NOTE | 2023-08-11 13:04 | PC.NURSE ---
Pt transported to [facility] for bone scan. Provider notified. To discharge home post bone scan per Provider.
--- NOTE | 2023-08-12 10:29 | PC.NURSE ---
Christel called with concerns regarding his antibiotic. She states that after the patient took the medication last night, he throw up for quite a while . She was advised to reach out to Dr. Fowler and let him know so that he can review the chart and advise them further. Christel states that she will reach out to Dr. Fowler
== END 2023-08-11 14:45 | disposition home or self-care (01) | DRG 690 ==
LOC: ANHED 12:48 → ANH3MEDSUR 18:47
PROVIDERS: Internal Medicine Hematology & Oncology; Nurse Practitioner Family; Physician Assistant; Admitting Provider Student in an Organized Health Care Education/Training Program; Emergency Provider Student in an Organized Health Care Education/Training Program; PCP Internal Medicine; Visit Provider Student in an Organized Health Care Education/Training Program
DX: N39.0 Urinary tract infection, site not specified (principal); C79.51 Secondary malignant neoplasm of bone; E86.0 Dehydration; C61 Malignant neoplasm of prostate; G89.3 Neoplasm related pain (acute) (chronic); K21.9 Gastro-esophageal reflux disease without esophagitis; I10 Essential (primary) hypertension; E78.5 Hyperlipidemia, unspecified; Z20.822 Contact with and (suspected) exposure to COVID-19; N40.0 Benign prostatic hyperplasia without lower urinary tract symptoms; L40.9 Psoriasis, unspecified; G47.33 Obstructive sleep apnea (adult) (pediatric); I25.10 Atherosclerotic heart disease of native coronary artery without angina pectoris; M17.11 Unilateral primary osteoarthritis, right knee; Z85.828 Personal history of other malignant neoplasm of skin; Z79.82 Long term (current) use of aspirin; Z95.5 Presence of coronary angioplasty implant and graft; Z87.891 Personal history of nicotine dependence
CPT/HCPCS: 36415; 72132; 74177; 76775; 78306; 80048; 80053; 81001; 82550; 83735; 84153; 85025; 85027; 86140; 87040; 87086; 87147; 87181; 87186; 87636; 96361; 96374; 97110; 97116; 97161; 97165; 97530; 97535; 99285; A9270; A9503; J0696; J2270; J7030; J7120; Q9967

== ENCOUNTER 2023-10-01 09:35 | Outpatient (CLI) | payer MEDICARE, SELFPAY ==
[2023-10-01 10:37] LABS: Estimated Glomerular Filt Rate > 60
== END 2023-10-01 09:36 | disposition home or self-care (01) ==
PROVIDERS: PCP Internal Medicine; Visit Provider Internal Medicine Hematology & Oncology
DX: C61 Malignant neoplasm of prostate (principal); C79.51 Secondary malignant neoplasm of bone
CPT/HCPCS: 36415; 82565; 96365; 99212; G0463; J3489

== ENCOUNTER 2023-10-29 08:46 | Outpatient (CLI) | payer MEDICARE, SELFPAY ==
[2023-10-29 09:44] LABS: Calcium 9.5 mg/dL (8.4-10.2); Estimated Glomerular Filt Rate > 60
== END 2023-10-29 08:47 | disposition home or self-care (01) ==
LOC: ANHLAB 08:51
PROVIDERS: PCP Internal Medicine; Visit Provider Internal Medicine Hematology & Oncology
DX: C61 Malignant neoplasm of prostate (principal); C79.51 Secondary malignant neoplasm of bone
CPT/HCPCS: 36415; 82310; 82565

== ENCOUNTER 2023-11-26 12:31 | Outpatient (CLI) | payer MEDICARE, SELFPAY ==
[2023-11-26 13:31] LABS: Estimated Glomerular Filt Rate > 60
== END 2023-11-26 12:32 | disposition home or self-care (01) ==
LOC: ANHLAB 12:34
PROVIDERS: PCP Internal Medicine; Visit Provider Internal Medicine Hematology & Oncology
DX: C61 Malignant neoplasm of prostate (principal); C79.51 Secondary malignant neoplasm of bone
CPT/HCPCS: 36415; 82565; 96365; 99212; G0463; J3489

== ENCOUNTER 2024-02-18 09:57 | Outpatient (RCR) | payer MEDICARE, SELFPAY ==
[2023-12-24 11:00] LABS: Basophils Percent Auto 0.9 % (0.2-1.2); Eosinophils Absolute Auto 0.2 K/mm3 (0-0.3); Eosinophils Percent Auto 3.3 % (0-4.4); Hematocrit 39.2 % (42.0-52.0); Hemoglobin 12.3 g/dL (14.0-18.0); Immature Granulocyte Absolute 0.02 K/mm3 (0.00-0.031); Immature Granulocyte Percent A 0.4 % (0-0.5); Lymphocytes Absolute Auto 0.61 K/mm3 (0.9-3.2); Lymphocytes Percent Auto 13.4 % (18.3-44.2); Mean Corpuscular HGB Conc 31.4 g/dl (32-36); Mean Corpuscular Hemoglobin 29.3 pg (26-34); Mean Corpuscular Volume 93.3 fl (80-100); Mean Platelet Volume 11.1 fl (7.4-10.4); Monocytes Absolute Auto 0.3 K/mm3 (0.1-0.6); Monocytes Percent Auto 7.5 % (2.6-8.5); Neutrophils Absolute Auto 3.4 K/mm3 (1.3-6.7); Neutrophils Percent Auto 74.5 % (45.5-73.1); Platelet Count Result 189 k/mm3 (150-375); Red Cell Distribution Width 15.5 % (11.5-14.5); White Blood Count 4.5 K/mm3 (4.5-10.0)
[2023-12-24 11:20] LABS: Anion Gap 6 mmol/L (4-12); Blood Urea Nitrogen 13 mg/dL (9-20); Calcium 9.5 mg/dL (8.4-10.2); Carbon Dioxide 25 mmol/L (22-30); Chloride 110 mmol/L (98-107); Estimated Glomerular Filt Rate 58; Glucose 109 mg/dL (65-110); Potassium 3.8 mmol/L (3.4-5.0); Sodium 141 mmol/L (137-145)
[2024-02-18 10:42] LABS: Basophils Percent Auto 0.6 % (0.2-1.2); Eosinophils Absolute Auto 0.1 K/mm3 (0-0.3); Eosinophils Percent Auto 2.2 % (0-4.4); Hematocrit 36.7 % (42.0-52.0); Hemoglobin 11.6 g/dL (14.0-18.0); Immature Granulocyte Absolute 0.03 K/mm3 (0.00-0.031); Immature Granulocyte Percent A 0.6 % (0-0.5); Lymphocytes Absolute Auto 0.63 K/mm3 (0.9-3.2); Lymphocytes Percent Auto 12.6 % (18.3-44.2); Mean Corpuscular HGB Conc 31.6 g/dl (32-36); Mean Corpuscular Hemoglobin 29.5 pg (26-34); Mean Corpuscular Volume 93.4 fl (80-100); Mean Platelet Volume 11.2 fl (7.4-10.4); Monocytes Absolute Auto 0.4 K/mm3 (0.1-0.6); Neutrophils Absolute Auto 3.8 K/mm3 (1.3-6.7); Platelet Count Result 189 k/mm3 (150-375); Red Blood Count 3.93 M/mm3 (4.6-6.20); Red Cell Distribution Width 14.6 % (11.5-14.5)
[2024-02-18 10:45] LABS: Anion Gap 9 mmol/L (4-12); Blood Urea Nitrogen 12 mg/dL (9-20); Calcium 9.1 mg/dL (8.4-10.2); Carbon Dioxide 23 mmol/L (22-30); Chloride 110 mmol/L (98-107); Estimated Glomerular Filt Rate 45; Glucose 124 mg/dL (65-110); Potassium 3.8 mmol/L (3.4-5.0); Sodium 142 mmol/L (137-145)
== END 2024-03-23 23:59 | disposition home or self-care (01) ==
LOC: ANHLAB 09:57
PROVIDERS: PCP Internal Medicine; Visit Provider Internal Medicine Hematology & Oncology
DX: C61 Malignant neoplasm of prostate (principal); C79.51 Secondary malignant neoplasm of bone
CPT/HCPCS: 36415; 80048; 85025; 96365; 99212; G0463; J3489

== ENCOUNTER 2024-03-17 07:46 | Outpatient (CLI) | payer MEDICARE, SELFPAY ==
[2024-03-17 08:13] LABS: Basophils Percent Auto 0.6 % (0.2-1.2); Eosinophils Absolute Auto 0.1 K/mm3 (0-0.3); Eosinophils Percent Auto 2.3 % (0-4.4); Hematocrit 36.6 % (42.0-52.0); Hemoglobin 12.1 g/dL (14.0-18.0); Immature Granulocyte Absolute 0.03 K/mm3 (0.00-0.031); Immature Granulocyte Percent A 0.6 % (0-0.5); Lymphocytes Absolute Auto 0.66 K/mm3 (0.9-3.2); Lymphocytes Percent Auto 12.4 % (18.3-44.2); Mean Corpuscular HGB Conc 33.1 g/dl (32-36); Mean Corpuscular Hemoglobin 30.5 pg (26-34); Mean Corpuscular Volume 92.2 fl (80-100); Mean Platelet Volume 10.4 fl (7.4-10.4); Monocytes Absolute Auto 0.4 K/mm3 (0.1-0.6); Monocytes Percent Auto 7.7 % (2.6-8.5); Neutrophils Absolute Auto 4.1 K/mm3 (1.3-6.7); Neutrophils Percent Auto 76.4 % (45.5-73.1); Platelet Count Result 186 k/mm3 (150-375); Red Blood Count 3.97 M/mm3 (4.6-6.20); Red Cell Distribution Width 14.3 % (11.5-14.5); White Blood Count 5.3 K/mm3 (4.5-10.0)
[2024-03-17 08:43] LABS: Anion Gap 10 mmol/L (4-12); Blood Urea Nitrogen 11 mg/dL (9-20); Calcium 8.9 mg/dL (8.4-10.2); Carbon Dioxide 25 mmol/L (22-30); Chloride 108 mmol/L (98-107); Estimated Glomerular Filt Rate 45; Glucose 92 mg/dL (65-110); Potassium 3.3 mmol/L (3.4-5.0); Sodium 143 mmol/L (137-145)
[2024-03-17 09:14] LABS: Prostate Specific Antigen < 0.1 ng/mL (< OR = 4.0)
== END 2024-03-17 07:47 | disposition home or self-care (01) ==
PROVIDERS: PCP Internal Medicine; Visit Provider Internal Medicine Hematology & Oncology
DX: C61 Malignant neoplasm of prostate (principal); C79.51 Secondary malignant neoplasm of bone
CPT/HCPCS: 36415; 80048; 84153; 85025; 99212; G0463

== ENCOUNTER 2024-04-14 12:36 | Outpatient (CLI) | payer MEDICARE, SELFPAY ==
[2024-04-14 13:06] LABS: Basophils Absolute Auto 0.1 K/mm3 (0.0-0.1); Basophils Percent Auto 0.9 % (0.2-1.2); Eosinophils Absolute Auto 0.1 K/mm3 (0-0.3); Eosinophils Percent Auto 1.4 % (0-4.4); Hematocrit 37.9 % (42.0-52.0); Hemoglobin 12.2 g/dL (14.0-18.0); Immature Granulocyte Absolute 0.04 K/mm3 (0.00-0.031); Immature Granulocyte Percent A 0.7 % (0-0.5); Lymphocytes Absolute Auto 0.76 K/mm3 (0.9-3.2); Lymphocytes Percent Auto 12.9 % (18.3-44.2); Mean Corpuscular HGB Conc 32.2 g/dl (32-36); Mean Corpuscular Volume 96.2 fl (80-100); Mean Platelet Volume 10.7 fl (7.4-10.4); Monocytes Absolute Auto 0.4 K/mm3 (0.1-0.6); Monocytes Percent Auto 7.1 % (2.6-8.5); Neutrophils Absolute Auto 4.5 K/mm3 (1.3-6.7); Platelet Count Result 193 k/mm3 (150-375); Red Blood Count 3.94 M/mm3 (4.6-6.20); Red Cell Distribution Width 14.5 % (11.5-14.5); White Blood Count 5.9 K/mm3 (4.5-10.0)
[2024-04-14 13:24] LABS: Alanine Aminotransferase 54 U/L (6-50); Alkaline Phosphatase 79 U/L (38-126); Anion Gap 11 mmol/L (4-12); Aspartate Amino Transferase 69 U/L (17-59); Bilirubin,Total 0.3 mg/dL (0.2-1.3); Blood Urea Nitrogen 8 mg/dL (9-20); Carbon Dioxide 22 mmol/L (22-30); Chloride 108 mmol/L (98-107); Estimated Glomerular Filt Rate 49; Glucose 122 mg/dL (65-110); Potassium 3.7 mmol/L (3.4-5.0); Sodium 141 mmol/L (137-145)
== END 2024-04-14 12:37 | disposition home or self-care (01) ==
PROVIDERS: PCP Internal Medicine; Visit Provider Internal Medicine Hematology & Oncology
DX: C61 Malignant neoplasm of prostate (principal); C79.51 Secondary malignant neoplasm of bone
CPT/HCPCS: 36415; 80053; 85025; 99212; G0463

== ENCOUNTER 2024-05-12 12:01 | Outpatient (CLI) | payer MEDICARE, SELFPAY ==
[2024-05-12 12:38] LABS: Calcium 9.1 mg/dL (8.4-10.2); Estimated Glomerular Filt Rate 39
== END 2024-05-12 12:02 | disposition home or self-care (01) ==
LOC: ANHLAB 12:08
PROVIDERS: PCP Internal Medicine; Visit Provider Internal Medicine Hematology & Oncology
DX: C61 Malignant neoplasm of prostate (principal); C79.51 Secondary malignant neoplasm of bone
CPT/HCPCS: 36415; 82310; 82565; 99212; G0463

== ENCOUNTER 2024-06-09 10:44 | Outpatient (CLI) | payer MEDICARE, SELFPAY ==
[2024-06-09 11:50] LABS: Calcium 8.6 mg/dL (8.4-10.2); Estimated Glomerular Filt Rate 49
== END 2024-06-09 10:45 | disposition home or self-care (01) ==
LOC: ANHLAB 10:50
PROVIDERS: PCP Internal Medicine; Visit Provider Internal Medicine Hematology & Oncology
DX: C61 Malignant neoplasm of prostate (principal); C79.51 Secondary malignant neoplasm of bone
CPT/HCPCS: 36415; 82310; 82565; 99212; G0463

== ENCOUNTER 2024-07-07 10:28 | Outpatient (CLI) | payer MEDICARE, SELFPAY ==
[2024-07-07 11:07] LABS: Calcium 8.8 mg/dL (8.4-10.2); Estimated Glomerular Filt Rate 42
== END 2024-07-07 10:29 | disposition home or self-care (01) ==
PROVIDERS: PCP Internal Medicine; Visit Provider Internal Medicine Hematology & Oncology
DX: C61 Malignant neoplasm of prostate (principal); C79.51 Secondary malignant neoplasm of bone
CPT/HCPCS: 36415; 82310; 82565; 99212; G0463

== ENCOUNTER 2024-08-12 12:34 | Outpatient (CLI) | payer MEDICARE, SELFPAY ==
[2024-08-12 13:27] LABS: Calcium 8.9 mg/dL (8.4-10.2); Estimated Glomerular Filt Rate 45
== END 2024-08-12 12:35 | disposition home or self-care (01) ==
PROVIDERS: PCP Internal Medicine; Visit Provider Internal Medicine Hematology & Oncology
DX: C61 Malignant neoplasm of prostate (principal); C79.51 Secondary malignant neoplasm of bone
CPT/HCPCS: 36415; 82310; 82565; 99212; G0463

== ENCOUNTER 2024-08-22 14:12 | Outpatient (CLI) | payer MEDICARE, SELFPAY ==
--- NOTE | ~2024-08-22 | XR_ITS ---
XR hip RT min 2V 08/22/2024 14:42 Indication: Right hip pain Procedure: 2 views right hip Comparison: No prior studies for comparison. Findings: There is mild osteoarthritis of the right hip. No fracture, subluxation or dislocation. No significant soft tissue abnormality. No foreign bodies. Impression: 1: Mild osteoarthritis of the right hip. Reviewed, dictated and finalized at location B. SEAT POUNDER Impression: 1: Mild osteoarthritis of the right hip.
--- NOTE | ~2024-08-22 | XR_ITS ---
EXAMINATION: XR sacroiliac joints min 3V DATE: 08/22/2024 14:42 INDICATION: Sacrococcygeal disorders, not elsewhere classified. TECHNIQUE: 3 views of the sacroiliac joints were obtained. COMPARISON: Radiograph 12/31/2020, CT 08/08/2023 FINDINGS: There is lumbar levoscoliosis and spondylosis. No fracture. There is ankylosis of right sac roiliac joint. There is mild left sacroiliac joint osteoarthritis. IMPRESSION: 1. Ankylosis of right sacroiliac joint. 2. Mild left sacroiliac joint osteoarthritis. Reviewed, dictated and finalized at location A. 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
--- NOTE | ~2024-08-22 | XR_ITS ---
EXAMINATION: XR chest 2V 08/22/2024 14:42 INDICATION: Chronic cough PROCEDURE: 2 view chest COMPARISON: 01/03/2020 FINDINGS: The lungs are clear. The cardiomediastinal silhouette is within normal limits. There are no pleural effusions. There is no pneumothorax suspected. IMPRESSION: 1: NO ACUTE CARDIOPULMONARY DISEASE. Reviewed, dictated and finalized at location B. PER MAKER
== END 2024-08-22 14:13 | disposition home or self-care (01) ==
PROVIDERS: PCP Internal Medicine; Visit Provider Internal Medicine
DX: M16.11 Unilateral primary osteoarthritis, right hip (principal); M46.1 Sacroiliitis, not elsewhere classified; R05.3 Chronic cough
CPT/HCPCS: 71046; 72202; 73502

== ENCOUNTER 2024-09-08 10:56 | Outpatient (CLI) | payer MEDICARE, SELFPAY ==
[2024-09-08 11:56] LABS: Calcium 8.8 mg/dL (8.4-10.2); Estimated Glomerular Filt Rate 42
== END 2024-09-08 10:57 | disposition home or self-care (01) ==
LOC: ANHLAB 11:01
PROVIDERS: PCP Internal Medicine; Visit Provider Internal Medicine Hematology & Oncology
DX: C61 Malignant neoplasm of prostate (principal); C79.51 Secondary malignant neoplasm of bone
CPT/HCPCS: 36415; 82310; 82565; 99212; G0463

== ENCOUNTER 2024-10-06 10:26 | Outpatient (CLI) | payer MEDICARE, SELFPAY ==
[2024-10-06 11:03] LABS: Basophils Percent Auto 0.4 % (0.2-1.2); Eosinophils Absolute Auto 0.1 K/mm3 (0-0.3); Eosinophils Percent Auto 1.1 % (0-4.4); Hematocrit 39.6 % (42.0-52.0); Hemoglobin 12.3 g/dL (14.0-18.0); Immature Granulocyte Absolute 0.05 K/mm3 (0.00-0.031); Immature Granulocyte Percent A 0.7 % (0-0.5); Lymphocytes Absolute Auto 0.64 K/mm3 (0.9-3.2); Lymphocytes Percent Auto 9.1 % (18.3-44.2); Mean Corpuscular HGB Conc 31.1 g/dl (32-36); Mean Corpuscular Hemoglobin 29.9 pg (26-34); Mean Corpuscular Volume 96.1 fl (80-100); Mean Platelet Volume 10.9 fl (7.4-10.4); Monocytes Absolute Auto 0.3 K/mm3 (0.1-0.6); Monocytes Percent Auto 4.4 % (2.6-8.5); Neutrophils Absolute Auto 5.9 K/mm3 (1.3-6.7); Neutrophils Percent Auto 84.3 % (45.5-73.1); Platelet Count Result 212 k/mm3 (150-375); Red Blood Count 4.12 M/mm3 (4.6-6.20); Red Cell Distribution Width 15.2 % (11.5-14.5)
[2024-10-06 11:18] LABS: Alanine Aminotransferase 99 U/L (6-50); Albumin Level 3.8 g/dL (3.5-5.1); Alkaline Phosphatase 93 U/L (38-126); Anion Gap 9 mmol/L (4-12); Aspartate Amino Transferase 124 U/L (17-59); Bilirubin,Total 0.4 mg/dL (0.2-1.3); Blood Urea Nitrogen 14 mg/dL (9-20); Calcium 9.1 mg/dL (8.4-10.2); Carbon Dioxide 24 mmol/L (22-30); Chloride 111 mmol/L (98-107); Estimated Glomerular Filt Rate 45; Glucose 101 mg/dL (65-110); Potassium 3.6 mmol/L (3.4-5.0); Sodium 144 mmol/L (137-145)
--- OUTSIDE RECORDS SUMMARY | 2024-10-06 11:23 | XMS_ITS | Referral Summary ---
Author Organization [facility] [address] Address [address] [place] [address] Care Team Providers Care Parts Identifier Name Role Phone Moy Fowler MD Primary Care Provider [phone] Encounters Date Type Department Care Team Description 09/28/2024 4:00 PM DOCUMENT CONTROL CLERK Office Visit [facility] [address] [place] [address] [place] [address] Cherry uLevano MD Alzheimer's disease (HCC) from Last 3 Months Allergies No known active allergies Medications multivitamin tablet tablet take 1 tablet by oral route every day with food 0 2 Active aspirin (ECOTRIN LOW STRENGTH) 81 mg tablet take 1 tablet by oral route every day 0 0 6 Active acetaminophen ER (TYLENOL) 650 mg 8 hr tablet Take 1 tablet (650 mg total) by mouth every 8 (eight) hours as needed for pain Active coenzyme Q10 200 mg capsule Take 1 capsule (200 mg total) by mouth 2 (two) times a day Active cyanocobalamin (Vitamin B-12) 1,000 mcg tabletIndicatio ns:Prevention of Vitamin B12 Deficiency Take 1 tablet (1,000 mcg total) by mouth daily Active ezetimibe (ZETIA) 10 mg tablet Take 1 tablet (10 mg total) by mouth daily 2 Active mirtazapine (REMERON) 30 mg tablet Take 1 tablet (30 mg total) by mouth nightly at bedtime 3 Active FLUoxetine (PROzac) 20 mg capsule Take 1 capsule (20 mg total) by mouth daily 3 Active ferrous sulfate (iron) 325 mg (65 mg of elemental iron) tabletIndicatio ns:Iron Deficiency Anemia Take 1 tablet (325 mg total) by mouth daily with breakfast Active rosuvastatin (CRESTOR) 40 mg tabletIndicatio ns:Coronary artery disease involving [place] coronary artery of [place] heart without angina pectoris,Hyperl ipidemia LDL goal <70 Take 1 tablet by mouth once daily 90 tablet 1 4 Active memantine (NAMENDA) 10 mg tabletIndicatio ns:Moderate to Severe Alzheimer's Type Dementia Take 1 tablet (10 mg total) by mouth 2 (two) times a day 180 tablet 3 4 04/30/20 25 Active Active Problems Problem Noted Date Diagnosed Date Alzheimer's disease 07/28/2023 Assessment & Plan (05/05/2024 8:41 AM CDT): Stop Namzaric (wt loss), start Namenda/memantine 10 mg BID Increase calories Stay active socially and physically Chest tightness 01/06/2019 Pulmonary HTN 12/22/2017 Coronary artery disease invo lving [place] coronary artery of [place] heart without angina pectoris 07/07/2017 NICM (nonischemic cardiomyopathy) ([facility]) 06/09 Hyperlipidemia LDL goal <70 07/07/2017 Gastroesophageal reflux disease without esophagi tis 07/07/2017 [place] (obstructive sleep apnea) 07/07/2017 Social History Tobacco Use Types Packs/Day Years Used Date Smoking Tobacco: Former Smokeless Tobacco: Never Tobacco Cessation:Counseling Given: Not Answered Alcohol Use Standard Drinks/Week Comments Yes 0 (1 standard drink = 0.6 oz pur e alcohol) Sex and Gender Information Value Date Recorded Sex Assigned at Not on file Legal Sex Male 2:18 AM DOCUMENT CONTROL CLERK Gender Identity Not on file Sexual Orientation Not on file Last Filed Vital Signs Vital Sign Reading Time Taken Comments Blood Pressure 126/79 09/28/2024 4:03 PM DOCUMENT CONTROL CLERK Pulse 47 09/28/2024 4:03 PM DOCUMENT CONTROL CLERK Temperature - - Respiratory Rate 12 07/07/2017 7:57 AM CDT Oxygen Saturation 99% 05/12/2024 10:34 AM CDT Inhaled Oxygen Concentration - - Weight 65.8 kg (145 lb) 09/28/2024 4:03 PM DOCUMENT CONTROL CLERK Height 172.7 cm (5' 8 ) 09/28/2024 4:03 PM DOCUMENT CONTROL CLERK Body Mass Index 22.05 09/28/2024 4:03 PM DOCUMENT CONTROL CLERK Plan of Treatment Not on file Insurance [employer] Care Teams Parts Identifier Relationship Specialty Start Date End Date Moy Fowler MD [address] [facility] [address] [place] [address] PCP - General 02/25/12
--- OUTSIDE RECORDS SUMMARY | 2024-10-06 11:23 | XMS_ITS | Clinical Summary ---
Author Organization [facility] [address] Address [address] [place] [address] Care Team Providers Care Diesel Engine I Pipe Fitter Name Role Phone Moy Fowler MD Primary Care Provider [phone] Allergies No known active allergies Medications multivitamin [...] 40 mg tabletIndicatio ns:Coronary artery disease involving [place] coronary artery of [place] heart without angina pectoris,Hyperl ipidemia LDL goal [...] HTN 12/22/2017 Coronary artery disease invo lving [place] coronary artery of [place] heart without angina pectoris 07/07/2017 NICM (nonischemic cardiomyopathy) (CMS/HCC) 06/09 Hyperlipidemia LDL goal <70 07/07/2017 Gastroesophageal reflux disease without esophagi tis 07/07/2017 [place] (obstructive sleep apnea) 07/07/2017 Encounters Date Type Department Care Team Description 09/28/2024 4:00 PM BILLBOARD POSTER HELPER Office Visit [facility] [address] [place] [address] [place] [address] Cherry Luevano MD Alzheimer's disease (HCC) from Last 3 Months Medical History Medical History Date Comments ASHD (arteriosclerotic heart disease) Hyperlipidemia Sleep apnea Family History Medical History Relation Name Comments Memory loss Father's Brother Memory loss Mother Relation Name Status Comments Father's Brother Alive Mother Social History Tobacco Use Types Packs/Day Years Used Date Smoking Tobacco: Former Smokeless Tobacco: Never Tobacco Cessation:Counseling Given: Not Answered Alcohol Use Standard Drinks/Week Comments Yes 0 (1 standard drink = 0.6 oz pur e alcohol) Sex and Gender Information Value Date Recorded Sex Assigned at Not on file Legal Sex Male 2:18 AM BILLBOARD POSTER HELPER Gender Identity Not on file Sexual Orientation Not on file Obstetrics History Last Filed Vital Signs Vital Sign Reading Time Taken Comments Blood Pressure 126/79 09/28/2024 4:03 PM BILLBOARD POSTER HELPER Pulse 47 09/28/2024 4:03 PM BILLBOARD POSTER HELPER Temperature - - Respiratory Rate 12 07/07/2017 7:57 AM CDT Oxygen Saturation 99% 05/12/2024 10:34 AM CDT Inhaled Oxygen Concentration - - Weight 65.8 kg (145 lb) 09/28/2024 4:03 PM BILLBOARD POSTER HELPER Height 172.7 cm (5' 8 ) 09/28/2024 4:03 PM BILLBOARD POSTER HELPER Body Mass Index 22.05 09/28/2024 4:03 PM BILLBOARD POSTER HELPER Plan of Treatment Health Maintenance Due Date Last Done Comments Depression Screening 1943 Fall Risk Assessment 1943 DTaP/Tdap/Td Vaccine (1 - Tdap) 1954 Hepatitis B Screening 1961 Abdominal Aortic Aneurysm (A AA) Screen 2008 Well Visit 65+ 2008 Zoster Vaccine (1 of 2) 07/26/2013 05/31/2013 Influenza Vaccine (#1) 2024 9, 05/27/2018, 06/27/2017, Additional history exists Pneumococcal vaccine 65+ Completed 018, 06/27/2017, 07/03/2014 Insurance [facility] Address: [facility] [address] [place] [address] MED[employer]ARE [employer]IONS MED[employer]ARE [employer]IONS Care Teams Diesel Engine I Pipe Fitter Relationship Specialty Start Date End Date Moy Fowler MD [address] [place], [place] [id number] PCP - General 02/25/12
--- OUTSIDE RECORDS SUMMARY | 2024-10-06 11:23 | XMS_ITS | Clinical Summary ---
Author Organization [facility] Christelle Vera Address [address] [place] [address] Care Team Providers Care Rag Inspector Name Role Phone Moy Fowler MD Primary Care Provider + Allergies No known active allergies Medications ezetimibe (ZETIA) 10 mg tablet Take 10 mg by mouth daily. 2 Active rosuvastatin (CRESTOR) 40 mg tablet Take 1 Tablet by mouth daily. 3 Active memantine-donep eziL (Namzaric) 14-10 mg capsule,sprinkl e,ER 24hr Take 1 Capsule by mouth daily. 3 Active coenzyme Q10 200 mg Capsule Take 200 mg by mouth 2 times daily. Active dexAMETHasone (DECADRON) 4 mg tablet Take 2 Tablets (8 mg) by mouth one time for 1 dose. Take 1 hr prior to each radiation treatment with food. 10 Tablet 3 Active FLUoxetine (PROzac) 20 mg capsule 3 Active mirtazapine (REMERON) 15 mg tablet Take 15 mg by mouth daily at bedtime. 3 Active Active Problems No known active problems Encounters Date Type Department Care Team Description 09/28/2024 External Device Data STL ABSTRACTION Provider, Abstract 09/28/2024 External Device Data ST[facility] ABSTRACTION Provider, Abstract 09/19/2024 Orders Only [facility] [place] [address] [place] [address] Jorge Luis Salazar MD 09/15/2024 Orders Only [facility] [place] [address] Jorge Luis Salazar MD 08/29/2024 Orders Only [facility] [place] [address] [place] [phone] Jorge Luis Salazar MD Prostate 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) 08/15/2024 Orders Only [facility] [place] [address] Jorge Luis Salazar MD Prostate 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) 08/01/2024 Orders Only [facility] [place] [address] Jorge Luis Salazar MD Prostate 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) 07/18/2024 Orders Only [facility] [place] [address] [place] [phone] Jorge Luis Salazar MD Prostate 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) 07/08/2024 Orders Only [facility] [place] [address] [place] [address] Jorge Luis Salazar MD from Last 3 Months Family History Medical History Relation Name Comments Brain Cancer Brother Throat Cancer Brother Heart Disease Daughter No Known Problems Father Brain Cancer Mother Lung Cancer Mother No Known Problems Sister Relation Name Status Comments Brother Daughter Alive Father Mother Sister Alive Son Alive Social History Tobacco Use Types Packs/Day Years Used Date Smoking Tobacco: Never Smokeless Tobacco: Never Tobacco Cessation:Counseling Given: Not Answered Alcohol Use Standard Drinks/Week Comments Never 0 (1 standard drink = 0.6 oz pur e alcohol) Feeling Safe Answer Date Recorded Are you in a relationship wi th someone who hurts you emotionally and/or physically? No 06/24/2023 Sex and Gender Information Value Date Recorded Sex Assigned at Not on file Legal Sex Male 3:19 PM CDT Gender Identity Not on file Sexual Orientation Not on file Last Filed Vital Signs Vital Sign Reading Time Taken Comments Blood Pressure 99/64 05/31/2024 1:00 PM CDT Pulse 71 05/31/2024 1:00 PM CDT Temperature 36.5 ??C (97.7 ??F) 05/31/2024 1:00 PM CD T Respiratory Rate 14 05/31/2024 1:00 PM CDT Oxygen Saturation 97% 05/31/2024 1:00 PM CDT Inhaled Oxygen Concentration - - Weight 66 kg (145 lb 8 oz) 05/31/2024 1:00 PM CD T Height 175.3 cm (5' 9 ) 05/14/2023 1:38 PM CDT Body Mass Index 21.49 05/14/2023 1:38 PM CDT Plan of Treatment Upcoming Encounters Date Type Department Care Team (Late st Contact Info) Description 10/11/2024 9:30 AM IMPREGNATION OPERATOR Office Visit [facility] [place] [address] [facility] [address] [place] [address] Jorge Luis Salazar MD [address] [facility] [address] [place] [address] Health Maintenance Due Date Last Done Comments DTAP/TDAP/TD VACCINES (1 - Tdap) 1962 PNEUMOCOCCAL VACCINE 65+ YEARS (1 of 2 - PCV) 03/29/19 62 ZOSTER VACCINE (1 of 2) 1962 RSV VACCINE (60+ or ) (1 - 1-dose 75+ series) 2018 INFLUENZA VACCINE (#1) 2024 06/07/2023 Medicare [place] ([place]) Prev entative Visit/Annual Wellness Visit 09/07/2024 Procedures Procedure Name Priority Date/Time Associated Diagnosis Comments CBC WITH AUTODIFFERENTIAL Routine 2024 11:55 AM IMPREGNATION OPERATOR CREATININE Routine 09/08/2024 11:48 AM IMPREGNATION OPERATOR CREATININE Routine 08/12/2024 3:34 PM IMPREGNATION OPERATOR CREATININE Routine 07/07/2024 9:45 AM CDT from Last 3 Months Results * CBC WITH AUTODIFFERENTIAL (09/14/2024 11:55 AM IMPREGNATION OPERATOR) Blood us Jorge Luis Salazar MD HEMATOLOGY ORDERABLES Final Res ult * CREATININE (09/08/2024 11:48 AM IMPREGNATION OPERATOR) Only the most recent of3 resultswithin the time period is included. Blood us Jorge Luis Salazar MD CHEMISTRY ORDERABLES Final Resu lt from Last 3 Months Insurance Care Teams Rag Inspector Relationship Specialty Start Date End Date Moy Fowler MD [address] [place] [phone] PCP - General Internal Medicine 05/06/23
[2024-10-06 11:48] LABS: Prostate Specific Antigen < 0.1 ng/mL (< OR = 4.0)
== END 2024-10-06 10:27 | disposition home or self-care (01) ==
PROVIDERS: PCP Internal Medicine; Visit Provider Internal Medicine Hematology & Oncology
DX: C61 Malignant neoplasm of prostate (principal); C79.51 Secondary malignant neoplasm of bone
CPT/HCPCS: 36415; 80053; 84153; 85025; 99212; G0463

== ENCOUNTER 2024-11-03 13:06 | Outpatient (CLI) | payer MEDICARE, SELFPAY ==
[2024-11-03 13:39] LABS: Calcium 8.8 mg/dL (8.4-10.2); Estimated Glomerular Filt Rate 43
== END 2024-11-03 13:07 | disposition home or self-care (01) ==
LOC: ANHLAB 13:10
PROVIDERS: PCP Internal Medicine; Visit Provider Internal Medicine Hematology & Oncology
DX: C61 Malignant neoplasm of prostate (principal); C79.51 Secondary malignant neoplasm of bone
CPT/HCPCS: 36415; 82310; 82565; 99212; G0463

== ENCOUNTER 2024-12-01 10:25 | Outpatient (CLI) | payer MEDICARE, SELFPAY ==
[2024-12-01 11:13] LABS: Calcium 9.2 mg/dL (8.4-10.2); Estimated Glomerular Filt Rate 41
--- OUTSIDE RECORDS SUMMARY | 2024-12-01 11:40 | XMS_ITS | Clinical Summary ---
Author Organization [facility] [address] Address [address] [place] [address] Care Team Providers Care Business Dean Name Role Phone Moy Fowler MD Primary Care Provider [phone] Allergies No known active allergies Medications multivitamin [...] 40 mg tabletIndicatio ns:Coronary artery disease involving benton coronary artery of benton heart without angina pectoris,Hyperl ipidemia LDL goal [...] HTN 12/22/2017 Coronary artery disease invo lving benton coronary artery of benton heart without angina pectoris 07/07/2017 NICM (nonischemic cardiomyopathy) 07/07/2017 Hyperlipidemia LDL goal <70 07/07/2017 Gastroesophageal reflux disease without esophagi tis 07/07/2017 [place] (obstructive sleep apnea) 07/07/2017 Encounters Date Type Department Care Team Description 09/28/2024 4:00 PM HOME TEACHING GRADES 9 THRU 12 TEACHER Office Visit [facility] [address] [facility] 6th [place] [address] [place] [address] Cherry Luevano MD Alzheimer's disease (HCC) from [...] on file Legal Sex Male 2:18 AM HOME TEACHING GRADES 9 THRU 12 TEACHER Gender Identity Not on file Sexual Orientation Not on file Obstetrics History Last Filed Vital Signs Vital Sign Reading Time Taken Comments Blood Pressure 126/79 09/28/2024 4:03 PM HOME TEACHING GRADES 9 THRU 12 TEACHER Pulse 47 09/28/2024 4:03 PM HOME TEACHING GRADES 9 THRU 12 TEACHER Temperature - - Respiratory Rate 12 07/07/2017 7:57 AM CDT Oxygen Saturation 99% 05/12/2024 10:34 AM CDT Inhaled Oxygen Concentration - - Weight 65.8 kg (145 lb) 09/28/2024 4:03 PM HOME TEACHING GRADES 9 THRU 12 TEACHER Height 172.7 cm (5' 8 ) 09/28/2024 4:03 PM HOME TEACHING GRADES 9 THRU 12 TEACHER Body Mass Index 22.05 09/28/2024 4:03 PM HOME TEACHING GRADES 9 THRU 12 TEACHER Plan of Treatment Health Maintenance Due Date Last Done Comments Depression Screening 1943 Fall Risk Assessment 1943 DTaP/Tdap/Td Vaccine (1 - Tdap) 1954 Hepatitis B Screening 1961 Abdominal Aortic Aneurysm (A AA) Screen 2008 Well Visit 65+ 2008 Zoster Vaccine (1 of 2) 07/26/2013 05/31/2013 Influenza Vaccine (#1) 2024 9, 05/27/2018, 06/27/2017, Additional history exists Pneumococcal vaccine 65+ Completed 018, 06/27/2017, 07/03/2014 Insurance [employer]HC MEDICARE [facility] Address: [facility] [address] [place] [address] [facility] MEDICARE [facility] Address: [address] [address] [place] [address] [facility] MEDICARE [facility] Address: [address] [address] [place] [address] Care Teams Business Dean Relationship Specialty Start Date End Date Moy Fowler MD [address] [facility]NAL MEDICINE [place], [place] [phone] PCP - General 02/25/12
--- OUTSIDE RECORDS SUMMARY | 2024-12-01 11:40 | XMS_ITS | Data Portability ---
Author Organization [facility], Main Office Address [address] [place] [address] Care Team Providers Care Cartoon Designer Name Role Phone PASQUALE PAGAN Primary Care Provider PASQUALE PAGAN Referring Provider Assessment Encounter Date Assessment Date Assessment LastModified by Organization Details LastModified Time 03/02/2023 03/02/2023 Patient presents back and leg pain right. Pain is localized to the sacroiliac region worse with activity somewhat relieved by rest. He has had manager managed care however the pain persists he is tender over the sacroiliac bursa on the right. On exam he has got a positive Ria's test tenderness palpation pain to manipulation. Neurologically he is grossly intact. My impression patient has sacroiliac bursitis I injected with 20 mg Kenalog 4 cc 1% lidocaine and sacroiliac bursa on the right. For prescription drug management will try prednisone taper. We will also begin some therapy with follow-up in a month. I am hoping this will resolve. I reviewed the records pictures that he has from outside at the single AP view which demonstrates a degenerative lumbar spine. [email or web address] Not available 03/02/2023 10:40:29 03/30/2023 03/30/2023 Patient returns status post with sacroiliac pain left. He has had a nice response to conservative treatment. The pain is resolving. He has reached the point where he is back at a low level of pain, which he has had for many years and is comfortable with that. He declined another injection at this point. He will continue with Tylenol arthritis for pain. He can resume normal activity as tolerated. If it flares up again we will probably try more conservative treatment. Discussed. [email or web address] Not available 03/30/2023 10:25:47 Plan of Treatment Reminders Order Date Submit Date Provider Last Modified By Organization Details Last Modified Time Details Appointments None recorded. Lab None recorded. Referral physical therapist referral - please contact patient to schedule 2022 023 [facility] [place] [place] [facility], [address], [place], [address], 11:05:23 Procedures injection/ aspiration joint/burs a (PROC) - in office procedure, administer ed by provider 2022 023 [email or web address] In-Office Order, Internal Use Only DO Not Attach Compendium DO Not Attach Compendium, Do Not Delete/merge, [address] 10:27:47 Surgeries None recorded. Imaging None recorded. Medication Orders Kenalog 10 mg/mL suspension for injection [address] [facility] [place], [address], 10:29:42 ropivacain e (PF) 5 mg/mL (0.5 %) injection solution [address] [facility], [address] [place], [address], 3 10:29:42 prednisone 10 mg tablets in a dose pack [address], [address] [place], [address], 10:41:09 Patient TargetsNo targets recorded. Patient InstructionsNo instructions recorded. Reason for Referral Physical Therapist Referral for Pain in right hip joint please contact patient to schedule Referring Physician: Dustin Anna, Orthopedic Surgery, Encounter Date: 03/02/2023 Problems Name Problem SNOMED Code Status Onset Date Resolution Date Notes Provider Name and Address Organization Details Recorded Time Disorder of shoulder 932023294 Active Not Available [facility] 03/01/202 3 13:12:53 Shoulder joint pain 899085441 Active Not Available [facility] 3 13:12:53 Pain of left hip joint 4816573483803 00 Active 2022 Veronica RazoELIOT, [facility] [employer] [facility] 3 09:55:41 Pain in right hip joint 7945031192221 02 Active 2022 Tabitha DERIK Weiner null, [facility] [employer] [facility] 3 10:26:39 Pain in right sacroiliac joint 2183374646295 9107 Active 2022 Dustin Anna MD [address], [address], [place], [address] , [facility] [employer] [facility] [email or web address] [facility] 3 10:40:42 Notes:Some problems listed i n Document: #[id number] could not be added to this patient's chart. Please review this document and add these problems to the patient's chart manually as needed. Problem Notes None recorded. Procedures Surgical History Date Name Laterality Status Provider Name and Address Organization Details Recorded Time 3 Ortho - Cortisone Injection completed Dustin Anna MD [address], [address], [place], [address], [facility] [employer] [facility] [email or web address] [facility] 03/02/2023 10:39:25 Imaging Results None recorded. Procedure Notes None recorded. Medical Equipment None Reported. Allergies No known drug allergies Medications Name Sig Start Date Stop Date Status Note LastModified by Organization Details LastModified Time vit b12 1000mc[address] 1 TABLET UNDER THE TONGUE ONCE DAILY active Not Available Not Available No t Available prednisone 10 mg tablet TAKE 1 TABLET BY MOUTH THREE TIMES DAILY FOR 3 DAYS THEN 1 TWICE DAILY FOR 2 DAYS THEN 1 ONCE DAILY FOR 1 DAY active Not Available Not Available No t Available atorvastati n 20 mg tablet 01/17 completed Not Available Not Available Not Available clindamycin HCl 300 mg capsule 01/17 completed Not Available Not Available Not Available donepezil 10 mg tablet TAKE 1 TABLET BY MOUTH EVERY DAY AT BEDTIME active Not Available Not Available No t Available ondansetron 8 mg disintegrat ing tablet DISSOLVE 1 TABLET IN MOUTH 4 TIMES DAILY NEEDED FOR NAUSEA AND VOMITING active Not Available Not Available No t Available prednisone 10 mg tablets in a dose pack Take 1 tab by mouth, 3 times a day for 3 daysTake 1 tab by mouth 2 times a day for 2 daysTake 1 tab by mouth once a day for 1 day 2022 active Not Available Not Available Not Avai lable tamsulosin 0.4 mg capsule 01/17 completed Not Available Not Available Not Available Kenalog 10 mg/mL suspension for injection Take 20 mg by injection route. 2022 active [facility]: [phone] Not Available Not Available Not Available cephalexin 500 mg capsule TAKE 1 CAPSULE BY MOUTH THREE TIMES DAILY FOR 10 DAYS active Not Available Not Available No t Available lisinopril 10 mg tablet 01/17 completed Not Available Not Available Not Available diclofenac sodium 75 mg tablet,bonnie yed release 01/17 completed Not Available Not Available Not Available lisinopril 5 mg tablet TAKE 1 TABLET BY MOUTH ONCE DAILY active Not Available Not Available No t Available alclometaso ne 0.05 % topical ointment 01/17 completed Not Available Not Available Not Available Viagra 100 mg tablet TAKE 1 TABLET BY MOUTH DAILY NEEDED APPROXIMA TELY 1 HOUR BEFORE SEXUAL ACTIVITY 01/17 completed Not Available Not Available Not Available cefuroxime axetil 500 mg tablet 01/17 completed Not Available Not Available Not Available methylpredn isolone 4 mg tablets in a dose pack 01/17 completed Not Available Not Available Not Available ezetimibe 10 mg tablet TAKE 1 TABLET BY MOUTH ONCE DAILY active Not Available Not Available No t Available rosuvastati n 40 mg tablet TAKE 1 TABLET BY MOUTH ONCE DAILY active Not Available Not Available No t Available ropivacaine (PF) 5 mg/mL (0.5 %) injection solution Take 20 mg by injection route. 2022 active [facility] [phone] Not Available Not Available Not Available Namzaric 14 mg-10 mg capsule sprinkle,ex tended release TAKE 1 CAPSULE BY MOUTH ONCE DAILY active Not Available Not Available No t Available Fluzone High-Dose (PF) 180 mcg/0.5 mL intramuscul ar syringe TO BE ADMINISTE RED BY PHARMACIS T FOR IMMUNIZAT ION 01/17 completed Not Available Not Available Not Available Vitals Date Recorded Body height Body mass index (BMI) Body weight Provider Name and Address Organization Details Last Updated DateTime 03/02/2023 172.72 cm 21.6 kg/m2 41204.12 [employer]OT [employer] 03/02/2023 09:54:11 Date Recorded Body height Body mass index (BMI) Body weight Provider Name and Address Organization Details Last Updated DateTime 03/30/2023 172.72 cm 21.6 kg/m2 86094.12 ELIOT Will [employer] 03/30/2023 10:03:01 Social History Question Answer Notes LastModified by Organizat ion Details LastModified Time Tobacco Smoking Status Never Smoker EL[facility]OT [employer] [facility] [facility] 03/02/2023 09:54:44 What Is Your Level Of Alcohol Consumption? Moderate Information not available 03/02/2023 Sex: Unknown Functional Status None recorded. Mental Status None recorded. Family History Nothing Reported. Medical History Condition Response ARTHRITIS Y URINARY/BLADDER/KIDNEY PROBLEMS Y Past Encounters Encounter ID Performer Location Encounter Start Date Encounter Closed Date Diagnosis/Indication Diagnosis SNOMED-CT Code Diagnosis ICD10 Code Diagnosis Note [id number] Dustin Anna MD [facility] [place] [address] [place] [address] 03/02/2023 09:28:56 03/02/2023 10:32:24 Pain in right hip joint 5972965188 28954 M25.551 Pain in ri ght sacroiliac joint 4816771450 6219421 M53.3 [id number] Dustin Anna MD [facility] [place] [address] [place] [address] 03/30/2023 09:49:03 03/30/2023 10:43:31 Pain in right hip joint 1031361484 76637 M25.551 Pain in ri ght sacroiliac joint 3282345521 1531083 M53.3 Health Concerns Section Related Observation LastModified by Organization Detai ls LastModified Time None Recorded Concern Status LastModified by Organization Details LastModified Time None Recorded Advance Directives Directive None Recorded Payers Encounter Date Sequence Insurance Name Policy Number Policy Sapp Covered Member ID Sapp Member ID Guarantor Name 03/02/2023 1 [facility] (MEDICARE REPLACEMENT/A DVANTAGE - PPO) [id number] Pete Gokul [id number] Indra Hodgson 03/30/2023 1 [facility] (MEDICARE REPLACEMENT/A DVANTAGE - PPO) [id number] Pete Gokul [id number] Indra Hodgson Notes Date Note Type Note Provider Name and Address Organization Details Recorded Time 03/02/2023 text/html Back PainReporte d bypatient.Location :pain radiating to the buttocks Quality:dull Severity:worsening Duration:chronic Context:unusual activity; prior back problems Associated Symptoms:no fever; no weak limbs; no numbness of the legs/feet; no tingling; no incontinence; no shortness of breath Dustin Anna MD [address] [facility], [place], [address], [employer] 03/02/2023 10:41:04 03/30/2023 text/html Patient returns sacroiliac pain left. He has really had a nice response to conservative treatment and the pain is tolerable. He always has some pain in the area however had a recent exacerbation which has been calmed down treatment we have given him. Dustin Anna MD [address] [facility], [place], [address], [employer] [facility] 03/30/2023 10:26:07
--- OUTSIDE RECORDS SUMMARY | 2024-12-01 11:40 | XMS_ITS | Clinical Summary ---
Author Organization [facility] Christelle Vera Address [address] [place] [address] Care Team Providers Care Insect Control Inspector Name Role Phone Moy Fowler MD [...] Encounters Date Type Department Care Team Description 11/23/2024 External Device Data STL ABSTRACTION Provider, Abstract 11/12/2024 External Device Data STL ABSTRACTION Provider, Abstract 11/11/2024 External Device Data STL ABSTRACTION Provider, Abstract 10/25/2024 External Device Data STL ABSTRACTION Provider, Abstract 10/11/2024 9:30 AM CONSTRUCTION DIRECTOR Office Visit [facility] - [place] [address] [place] [address] Jorge Luis Salazar MD Prostate 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) (Primary Dx) 10/07/[address] [facility] - [place] [address] [place] [address] Jorge Luis Salazar MD 09/28/2024 External Device Data STL ABSTRACTION Provider, Abstract 09/28/2024 External Device Data STL ABSTRACTION Provider, Abstract 09/19/[address] [facility] - [place] [address] [place] [address] Jorge Luis Salazar MD 09/15/[address] [facility] - [place] [address] [place] [address] Jorge Luis Salazar MD from Last 3 [...] Sign Reading Time Taken Comments Blood Pressure 112/68 10/11/2024 11:52 AM CONSTRUCTION DIRECTOR Pulse 66 10/11/2024 11:52 AM CONSTRUCTION DIRECTOR Temperature 36 C (96.8 F) 10/11/2024 11:52 AM CONSTRUCTION DIRECTOR Respiratory Rate 14 05/31/2024 1:00 PM CDT Oxygen Saturation 94% 10/11/2024 11:52 AM CONSTRUCTION DIRECTOR Inhaled Oxygen Concentration - - Weight 65.8 kg (145 lb) 10/11/2024 11:52 AM CONSTRUCTION DIRECTOR Height 175.3 cm (5' 9 ) 05/14/2023 1:38 PM CDT Body Mass Index 21.41 05/14/2023 1:38 PM CDT Plan of Treatment Upcoming Encounters Date Type Department Care Team (Late st Contact Info) Description 01/12/2025 11:30 AM CDT Office Visit [facility] - [place] [address] [facility] [address] [place] [address] Jorge Luis Salazar MD [address] [facility] [address] [place] [address] Health Maintenance Due Date Last Done Comments DTAP/TDAP/TD VACCINES (1 - Tdap) 1964 PNEUMOCOCCAL VACCINE 50+ YEARS (1 of 2 - PCV) 03/29/19 62 ZOSTER VACCINE (1 of 2) 1962 RSV VACCINE (60+ or ) (1 - 1-dose 75+ series) 2018 INFLUENZA VACCINE (#1) 2024 06/07/2023 Medicare [place] ([place]) Prev entative Visit/Annual Wellness Visit 09/07/2024 Procedures Procedure Name Priority Date/Time Associated Diagnosis Comments COMPREHENSIVE METABOLIC PANEL Routine 10/06/2024 1:39 PM CONSTRUCTION DIRECTOR CBC WITH AUTODIFFERENTIAL Routine 2024 11:55 AM CONSTRUCTION DIRECTOR CREATININE Routine 09/08/2024 11:48 AM CONSTRUCTION DIRECTOR from Last 3 Months Results * COMPREHENSIVE METABOLIC PANEL (10/06/2024 1:39 PM CONSTRUCTION DIRECTOR) Blood us Jorge Luis Salazar MD CHEMISTRY ORDERABLES Final Resu lt * CBC WITH AUTODIFFERENTIAL (09/14/2024 11:55 AM CONSTRUCTION DIRECTOR) Blood us Jorge Luis Salazar MD HEMATOLOGY ORDERABLES Final Res ult * CREATININE (09/08/2024 11:48 AM CONSTRUCTION DIRECTOR) Blood Jorge Luis Salazar MD CHEMISTRY ORDERABLES Final Resu lt from Last 3 Months Insurance Care Teams Insect Control Inspector Relationship Specialty Start Date End Date Moy Fowler MD [address] [place] [address] PCP - General Internal Medicine 05/06/23
--- OUTSIDE RECORDS SUMMARY | 2024-12-01 11:40 | XMS_ITS | Referral Summary ---
Author Organization [facility] [address] Address [address] [place] [address] Care Team Providers Care Freight Handler Name Role Phone Moy Fowler MD Primary Care Provider [phone] Encounters Date Type Department Care Team Description 09/28/2024 4:00 PM NOVELTIES SALES REPRESENTATIVE Office Visit [facility] [address] [facility] [address] 6th [place] [address] [place] [address] Cherry Luevano MD Alzheimer's disease (HCC) from [...] 40 mg tabletIndicatio ns:Coronary artery disease involving [place] coronary artery of [place] heart without angina pectoris,Hyperl ipidemia LDL goal [...] HTN 12/22/2017 Coronary artery disease invo lving [place] coronary artery of [place] heart without angina pectoris 07/07/2017 NICM (nonischemic [...] on file Legal Sex Male 2:18 AM NOVELTIES SALES REPRESENTATIVE Gender Identity Not on file Sexual Orientation Not on file Last Filed Vital Signs Vital Sign Reading Time Taken Comments Blood Pressure 126/79 09/28/2024 4:03 PM NOVELTIES SALES REPRESENTATIVE Pulse 47 09/28/2024 4:03 PM NOVELTIES SALES REPRESENTATIVE Temperature - - Respiratory Rate 12 07/07/2017 7:57 AM CDT Oxygen Saturation 99% 05/12/2024 10:34 AM CDT Inhaled Oxygen Concentration - - Weight 65.8 kg (145 lb) 09/28/2024 4:03 PM NOVELTIES SALES REPRESENTATIVE Height 172.7 cm (5' 8 ) 09/28/2024 4:03 PM NOVELTIES SALES REPRESENTATIVE Body Mass Index 22.05 09/28/2024 4:03 PM NOVELTIES SALES REPRESENTATIVE Plan of Treatment Not on file Insurance UHC MEDICARE ADVANTAGE UHC MEDICARE ADVANTAGE UHC MEDICARE ADVANTAGE Care Teams Freight Handler Relationship Specialty Start Date End Date Moy Fowler MD [address] [facility] [facility] [address] [place] [address] PCP - General 02/25/12
== END 2024-12-01 10:26 | disposition home or self-care (01) ==
PROVIDERS: PCP Internal Medicine; Visit Provider Internal Medicine Hematology & Oncology
DX: C61 Malignant neoplasm of prostate (principal); C79.51 Secondary malignant neoplasm of bone
CPT/HCPCS: 36415; 82310; 82565; 99212; G0463

== ENCOUNTER 2024-12-29 13:32 | Outpatient (CLI) | payer MEDICARE, SELFPAY ==
[2024-12-29 13:58] LABS: Basophils Absolute Auto 0.1 K/mm3 (0.0-0.1); Basophils Percent Auto 0.7 % (0.2-1.2); Eosinophils Absolute Auto 0.2 K/mm3 (0-0.3); Eosinophils Percent Auto 2.4 % (0-4.4); Hematocrit 38.2 % (42.0-52.0); Hemoglobin 12.1 g/dL (14.0-18.0); Immature Granulocyte Absolute 0.04 K/mm3 (0.00-0.031); Immature Granulocyte Percent A 0.6 % (0-0.5); Lymphocytes Percent Auto 9.9 % (18.3-44.2); Mean Corpuscular HGB Conc 31.7 g/dl (32-36); Mean Corpuscular Hemoglobin 30.5 pg (26-34); Mean Corpuscular Volume 96.2 fl (80-100); Monocytes Absolute Auto 0.6 K/mm3 (0.1-0.6); Monocytes Percent Auto 7.9 % (2.6-8.5); Neutrophils Absolute Auto 5.5 K/mm3 (1.3-6.7); Neutrophils Percent Auto 78.5 % (45.5-73.1); Platelet Count Result 214 k/mm3 (150-375); Red Blood Count 3.97 M/mm3 (4.6-6.20); Red Cell Distribution Width 14.8 % (11.5-14.5); White Blood Count 7.1 K/mm3 (4.5-10.0)
--- OUTSIDE RECORDS SUMMARY | 2024-12-29 14:39 | XMS_ITS | Encounter Summary ---
Author Organization [facility] Healthcare Address [address] [place] [address] Care Team Providers Care Asphalt Machine Operator Name Role Phone Moy Fowler MD Primary Care Provider [phone] Reason for Visit * Reason Comments Carotid Artery Disease Atrial bigeminy 6-9 mo f/u Encounter Details Date Type Department Care Team (Late st Contact Info) Description 12/29/2024 10:30 AM CDT Office Visit [facility] Cardiology [address] [facility] [address] [place] [address] Seb Lee MD [facility] [address] Coronary artery disease involving [place] coronary artery of [place] heart without angina pectoris (Primary Dx); NICM (nonischemic cardiomyopathy) (HCC); Hyperlipidemia LDL goal <70; Pulmonary HTN (HCC); [place] (obstructive sleep apnea); Alzheimer's disease (HCC) Social History Tobacco Use Types Packs/Day Years Used Date Smoking Tobacco: Former Smokeless Tobacco: Never Alcohol Use Standard Drinks/Week Comments Yes 0 (1 standard drink = 0.6 oz pur e alcohol) Sex and Gender Information Value Date Recorded Sex Assigned at Not on file 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 Gender Identity Not on file Sexual Orientation Not on file documented as of this encounter Last Filed Vital Signs Vital Sign Reading Time Taken Comments Blood Pressure 106/68 12/29/2024 10:33 AM CDT Pulse 79 12/29/2024 10:33 AM CDT Temperature - - Respiratory Rate - - Oxygen Saturation 98% 12/29/2024 10:33 AM CDT Inhaled Oxygen Concentration - - Weight 65.8 kg (145 lb) 12/29/2024 10:33 AM CDT Height 172.7 cm (5' 8 ) 12/29/2024 10:33 AM CDT Body Mass Index 22.05 12/29/2024 10:33 AM CDT documented in this encounter Progress Notes * Seb Lee MD - 12/29/2024 10:30 AM CDT Images from the original note were not included. [facility] DATE OF VISIT: 12/29/2024 CHIEF COMPLAINT Chief Complaint Patient presents with Carotid Artery Disease Atrial bigeminy 6-9 mo f/u HPI Indra Hodgson is a 79 y.o. male with coronary artery disease with stenting to the circumflex in 2000. He has mild sleep apnea. Negative stress test for ischemia in 2013. Mild cardiomyopathy with ejection fraction 53%. He returns 01/06/2019. He has had 2 episodes of chest tightness over the past month while doing [employer] work. He was raking on 1 occasion. Chest pain lasted for a few minutes and resolved with rest. It was not associated with other symptoms nor did he have any radiation. He denies any syncope, presyncope, paroxysmal nocturnal dyspnea, orthopnea, edema or palpitations. No significant shortness of breath. Follow-up note 12/29/24 He denies any chest pain, shortness breath, syncope, presyncope, paroxysmal nocturnal dyspnea, orthopnea, edema or palpitations. Memory is getting worse MEDICAL HISTORY Past Medical History: Diagnosis Date ASHD (arteriosclerotic heart disease) Hyperlipidemia Sleep apnea Social History Tobacco Use Smoking status: Former Smoker Smokeless tobacco: Never Used Substance Use Topics Alcohol use: Yes Drug use: No Family History Problem Relation Age of Onset Memory loss Mother Memory loss Father's Brother MEDICATIONS Medication List Accurate as of December 29, 2024 10:42 AM. If you have any questions, ask your nurse or doctor. CONTINUE taking these medications acetaminophen ER 650 mg 8 hr tablet Commonly known as: TYLENOL coenzyme Q10 200 mg capsule cyanocobalamin 1,000 mcg tablet Commonly known as: Vitamin B-12 Ecotrin Low Strength 81 mg enteric coated tablet Generic drug: aspirin take 1 tablet by oral route every day ezetimibe 10 mg tablet Commonly known as: ZETIA FLUoxetine 20 mg capsule Commonly known as: PROzac iron 325 mg (65 mg of elemental iron) tablet Generic drug: ferrous sulfate memantine 10 mg tablet Commonly known as: NAMENDA Take 1 tablet (10 mg total) by mouth 2 (two) times a day mirtazapine 30 mg tablet Commonly known as: REMERON multivitamin tablet take 1 tablet by oral route every day with food rosuvastatin 40 mg tablet Commonly known as: CRESTOR Take 1 tablet by mouth once daily ALLERGIES No Known Allergies REVIEW OF SYSTEMS Review of Systems Constitutional: Negative for weight loss. HENT: Negative for ear pain. Eyes: Positive for visual disturbance. Negative for blurred vision. Cardiovascular: Negative for chest pain, claudication, dyspnea on exertion, irregular heartbeat, leg swelling, near-syncope, orthopnea, palpitations, paroxysmal nocturnal dyspnea and syncope. Respiratory: Negative for cough, hemoptysis, shortness of breath, sleep disturbances due to breathing, snoring and wheezing. Endocrine: Negative for cold intolerance, heat intolerance and polyuria. Hematologic/Lymphatic: Bruises/bleeds easily. Skin: Negative for color change, itching and rash. Musculoskeletal: Positive for joint pain and myalgias. Negative for falls, joint swelling, muscle cramps and muscle weakness. Gastrointestinal: Negative for abdominal pain, heartburn, nausea and vomiting. Genitourinary: Negative for dysuria. Neurological: Positive for headaches. Negative for excessive daytime sleepiness, dizziness, focal weakness, light-headedness, loss of balance and numbness. Psychiatric/Behavioral: Positive for depression. Negative for altered mental status and substance abuse. The patient is not nervous/anxious. Allergic/Immunologic: Negative for environmental allergies. PHYSICAL EXAM Blood pressure 106/68, pulse 79, height 172.7 cm (5' 8 ), weight 65.8 kg (145 lb), SpO2 98%. Body mass index is 22.05 kg/m??. Physical Exam Vitals reviewed. HENT: Head: Normocephalic and atraumatic. Nose: Nose normal. Eyes: General: No scleral icterus. Conjunctiva/sclera: Conjunctivae normal. Cardiovascular: Rate and Rhythm: Normal rate and regular rhythm. Pulses: Intact distal pulses. Heart sounds: Normal heart sounds. No murmur heard. No friction rub. No gallop. Pulmonary: Effort: Pulmonary effort is normal. No respiratory distress. Breath sounds: Normal breath sounds. No wheezing or rales. Chest: Chest wall: No tenderness. Abdominal: General: Bowel sounds are normal. There is no distension. Palpations: Abdomen is soft. Tenderness: There is no abdominal tenderness. Musculoskeletal: General: Normal range of motion. Cervical back: Neck supple. Skin: General: Skin is warm and dry. Neurological: Mental Status: He is alert and oriented to person, place, and time. Psychiatric: Mood and Affect: Mood normal. LABS AND OTHER DIAGNOSTIC TESTS No results found for: WBC , HGB , HCT , MCV , PLT Chemistry No results found for: SODIUM , POTASSIUM , CHLORIDE , CO2 , BUNSER , CREATININE , GLUCOSE No results found for: CALCIUM , ALKPHOS , AST , ALT , BILITOT No results found for: CHOL No results found for: HDL No results found for: LDL ] No results found for: LDLCALC No results found for: TRIG No results found for: CHOLHDL EKG 11/21/2021: Normal sinus rhythm, inferior T-wave abnormality, consider ischemia. Short ID interval. Abnormal EKG Echo 04/02/2023 Normal left ventricular size. Normal global left ventricular systolic function. Impaired diastolic relaxation Grade I. Ejection fraction is measured at 52 %. Global Longitudinal Strain is -15 %. The left atrium is normal in size. Normal appearance of the tricuspid valve. Estimated peak RVSP is 22 mmHg. Trivial regurgitation in the tricuspid valve. Normal appearance of the pulmonic valve. Mild pulmonic regurgitation. Myocardial perfusion study 01/07/2019: EF 53%. Normal study ASSESSMENT Diagnoses and all orders for this visit: 1. Coronary artery disease involving [place] coronary artery of [place] heart without angina pectoris Asymptomatic. No ischemia by stress testing in 2019. Previous PCI to the LCX in 2000 2. Nonischemic cardiomyopathy (CMS/HCC) EF 50-55%: Stable 3. Hyperlipidemia LDL goal <70 On statin 4. Gastroesophageal reflux disease without esophagitis 5. [place] (obstructive sleep apnea) Mild 6. Pulmonary hypertension (CMS/HCC): Mild and asymptomatic 7. Alzheimer disease Worse PLAN/RECOMMENDATIONS Memory is worsening. From a cardiac perspective though he is stable. Otherwise continue his other drug regimen without change including rosuvastatin and ezetimibe for hyperlipidemia and CAD. Continue aspirin for CAD. Follow-up in 6 months or sooner as clinically indicated Seb Lee MD, [facility] documented in this encounter Plan of Treatment Not on file documented as of this encounter Visit Diagnoses Diagnosis Coronary artery disease involving [place] coronary artery of [place] heart without angina pectoris- Primary NICM (nonischemic cardiomyopathy) (HCC) Hyperlipidemia LDL goal <70 Other and unspecified hyperlipidemia Pulmonary HTN (HCC) [place] (obstructive sleep apnea) Obstructive sleep apnea (adult) (pediatric) Alzheimer's disease (HCC) Alzheimer's disease documented in this encounter Care Teams Asphalt Machine Operator Relationship Specialty Start Date End Date Moy Fowler MD [address] [facility] [address] [facility] [address] [place] [address] PCP - General 02/25/12 documented as of this encounter
--- OUTSIDE RECORDS SUMMARY | 2024-12-29 14:39 | XMS_ITS | Referral Summary ---
Author Organization [facility] [address] [facility] [address] Address [address] [place] [address] Care Team Providers Care Barrel And Receiver Aligner Name Role Phone Moy Fowler MD Primary Care Provider [phone] Encounters Date Type Department Care Team Description 12/29/2024 10:30 AM CDT Office Visit [facility] Cardiology [address] [place] [address] Seb Lee MD Coronary artery disease involving [place] coronary artery of [place] heart without angina pectoris (Primary Dx); NICM (nonischemic cardiomyopathy) (HCC); Hyperlipidemia LDL goal <70; Pulmonary HTN (HCC); [place] (obstructive sleep apnea); Alzheimer's disease (HCC) from Last 3 Months Allergies No known active allergies Medications multivitamin tablet tablet take 1 tablet by oral route every day with food 0 11/05/19 12 Active aspirin (ECOTRIN LOW STRENGTH) 81 mg tablet take 1 tablet by oral route every day 0 0 06/26/20 16 Active acetaminophen ER (TYLENOL) 650 mg 8 hr tablet Take 1 tablet (650 mg total) by mouth every 8 (eight) hours as needed for pain Active coenzyme Q10 200 mg capsule Take 1 capsule (200 mg total) by mouth 2 (two) times a day Active cyanocobalamin (Vitamin B-12) 1,000 mcg tabletIndicati ons:Prevention of Vitamin B12 Deficiency Take 1 tablet (1,000 mcg total) by mouth daily Active ezetimibe (ZETIA) 10 mg tablet Take 1 tablet (10 mg total) by mouth daily 08/03/20 22 Active mirtazapine (REMERON) 30 mg tablet Take 1 tablet (30 mg total) by mouth nightly at bedtime 09/01/20 23 Active FLUoxetine (PROzac) 20 mg capsule Take 1 capsule (20 mg total) by mouth daily 08/18/20 23 Active ferrous sulfate (iron) 325 mg (65 mg of elemental iron) tabletIndicati ons:Iron Deficiency Anemia Take 1 tablet (325 mg total) by mouth daily with breakfast Active memantine (NAMENDA) 10 mg tabletIndicati ons:Moderate to Severe Alzheimer's Type Dementia Take 1 tablet (10 mg total) by mouth 2 (two) times a day 180 tablet 3 05/05/20 24 025 Active rosuvastatin (CRESTOR) 40 mg tabletIndicati ons:Coronary artery disease involving [place] coronary artery of [place] heart without angina pectoris,Hyper lipidemia LDL goal <70 Take 1 tablet by mouth once daily 90 tablet 1 12/03/19 25 Active rosuvastatin (CRESTOR) 40 mg tabletIndicati ons:Coronary artery disease involving [place] coronary artery of [place] heart without angina pectoris,Hyper lipidemia LDL goal <70 Take 1 tablet by mouth once daily 90 tablet 1 03/22/20 24 025 Discontinued Active Problems Problem Noted Date Diagnosed Date Alzheimer's disease 07/28/2023 Assessment & Plan (05/05/2024 8:41 AM CDT): Stop Namzaric (wt loss), start Namenda/memantine 10 mg BID Increase calories Stay active socially and physically Chest tightness 01/06/2019 Pulmonary HTN 12/22/2017 Coronary artery disease invo lving [place] coronary artery of [place] heart without angina pectoris 07/07/2017 NICM (nonischemic [...] on file 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 Gender Identity Not on file Sexual Orientation Not on file Last Filed Vital Signs Vital Sign Reading Time Taken Comments Blood Pressure 106/68 12/29/2024 10:33 AM CDT Pulse 79 12/29/2024 10:33 AM CDT Temperature - - Respiratory Rate 12 07/07/2017 7:57 AM CDT Oxygen Saturation 98% 12/29/2024 10:33 AM CDT Inhaled Oxygen Concentration - - Weight 65.8 kg (145 lb) 12/29/2024 10:33 AM CDT Height 172.7 cm (5' 8 ) 12/29/2024 10:33 AM CDT Body Mass Index 22.05 12/29/2024 10:33 AM CDT Plan of Treatment Not on file Insurance [facility] MEDICARE ADVANTAGE [facility] MEDICARE ADVANTAGE UHC MEDICARE ADVANTAGE Care Teams Barrel And Receiver Aligner Relationship Specialty Start Date End Date Moy Fowler MD [address] [place] [address] [place] [address] PCP - General 02/25/12
--- OUTSIDE RECORDS SUMMARY | 2024-12-29 14:39 | XMS_ITS | Clinical Summary ---
Author Organization [facility] [address] Address [address] [place] [address] Care Team Providers Care Garment Parts Cutter Hand Name Role Phone Moy Fowler MD Primary Care Provider [phone] Allergies No known active allergies Medications multivitamin [...] 40 mg tabletIndicati ons:Coronary artery disease involving [place] coronary artery of [place] heart without angina pectoris,Hyper lipidemia LDL goal <70 Take 1 tablet by mouth once daily 90 tablet 1 12/03/19 25 Active rosuvastatin (CRESTOR) 40 mg tabletIndicati ons:Coronary artery disease involving [place] coronary artery of [place] heart without angina pectoris,Hyper lipidemia LDL goal [...] HTN 12/22/2017 Coronary artery disease invo lving [place] coronary artery of [place] heart without angina pectoris 07/07/2017 NICM (nonischemic cardiomyopathy) 07/07/2017 Hyperlipidemia LDL goal <70 07/07/2017 Gastroesophageal reflux disease without esophagi tis 07/07/2017 [place] (obstructive sleep apnea) 07/07/2017 Encounters Date Type Department Care Team Description 12/29/2024 10:30 AM CDT Office Visit [facility] Cardiology [address] [place] [address] Seb Lee MD Coronary artery disease involving [place] coronary artery of [place] heart without angina pectoris (Primary Dx); NICM [...] on file 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 Gender Identity Not on file Sexual Orientation [...] 12/29/2024 10:33 AM CDT Plan of Treatment Health Maintenance Due Date Last Done Comments Depression Screening 1943 Fall Risk Assessment 1945 DTaP/Tdap/Td Vaccine (1 - Tdap) 1954 Hepatitis B Screening 1961 Abdominal Aortic Aneurysm (A AA) Screen 2008 Well Visit 65+ 2008 Zoster Vaccine (1 of 2) 07/26/2013 05/31/2013 Influenza Vaccine (Season Ended) 2025 05/27/2019, 05/27/2018, 06/27/2017, Additional history exists Pneumococcal vaccine 65+ Completed 018, 06/27/2017, 07/03/2014 Insurance [facility] MEDICARE ADVANTAGE [facility]ICARE Address: [address] [address] [place] [address] [facility] MEDICARE ADVANTAGE [facility] MEDICARE Address: [address] [address] [facility] MEDICARE ADVANTAGE [facility] MEDIC[facility] Address: [address] [place] [phone] Care Teams Garment Parts Cutter Hand Relationship Specialty Start Date End Date Moy Fowler MD [address] [facility] [address] [place] [address] PCP - General 02/25/12
--- OUTSIDE RECORDS SUMMARY | 2024-12-29 14:39 | XMS_ITS | Clinical Summary ---
Author Organization [facility] [address] Address [address] [place] [address] Care Team Providers Care Nuclear Fuel Enrichment Technician Name Role Phone Moy Fowler MD Primary [...] Encounters Date Type Department Care Team Description 12/01/2024 Orders Only [facility] Oncology and Hematology - [place] [address] [place] [address] Jorge Luis Salazar MD Prostate 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) (Primary Dx) 11/23/2024 External Device Data STL ABSTRACTION Provider, Abstract 11/12/2024 External Device Data STL ABSTRACTION Provider, Abstract 11/11/2024 External Device Data STL ABSTRACTION Provider, Abstract 10/25/2024 External Device Data STL ABSTRACTION Provider, Abstract 10/11/2024 9:30 AM MERCHANDISE FLOW TEAM LEADER Office Visit [facility] and [facility] [address] [place] [address] Jorge Luis Salazar MD Prostate 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) (Primary Dx) 10/07/2024 Orders Only [facility] [address] [place] [address] Jorge Luis Salazar MD from Last 3 [...] Comments Blood Pressure 112/68 10/11/2024 11:52 AM MERCHANDISE FLOW TEAM LEADER Pulse 66 10/11/2024 11:52 AM MERCHANDISE FLOW TEAM LEADER Temperature 36 C (96.8 F) 10/11/2024 11:52 AM MERCHANDISE FLOW TEAM LEADER Respiratory Rate 14 05/31/2024 1:00 PM CDT Oxygen Saturation 94% 10/11/2024 11:52 AM MERCHANDISE FLOW TEAM LEADER Inhaled Oxygen Concentration - - Weight 65.8 kg (145 lb) 10/11/2024 11:52 AM MERCHANDISE FLOW TEAM LEADER Height 175.3 cm (5' 9 ) 05/14/2023 1:38 PM CDT Body Mass Index 21.41 05/14/2023 1:38 PM CDT Plan of Treatment Upcoming Encounters Date Type Department Care Team (Late st Contact Info) Description 01/17/2025 11:00 AM CDT Office Visit [facility] Oncology and Hematology - [place] [address] [facility] [address] [place] [address] Jorge Luis Salazar MD [address] [facility] [address] [place] [address] Health Maintenance Due Date Last Done Comments DTAP/TDAP/TD VACCINES (1 - Tdap) 1964 PNEUMOCOCCAL VACCINE 50+ YEARS (1 of 2 - PCV) 03/29/19 62 ZOSTER VACCINE (1 of 2) 1962 RSV VACCINE (60+ or ) (1 - 1-dose 75+ series) 2018 INFLUENZA VACCINE (#1) 2024 06/07/2023 Procedures Procedure Name Priority Date/Time Associated Diagnosis Comments COMPREHENSIVE METABOLIC PANEL Routine 10/06/2024 1:39 PM MERCHANDISE FLOW TEAM LEADER from Last 3 Months Results * COMPREHENSIVE METABOLIC PANEL (10/06/2024 1:39 PM MERCHANDISE FLOW TEAM LEADER) Blood us Jorge Luis Salazar MD CHEMISTRY ORDERABLES Final Resu lt from Last [address] [place] [address] [place] [id number] [facility] [id number] Care Teams Nuclear Fuel Enrichment Technician Relationship Specialty Start Date End Date Moy Fowler MD [address] [place] [address] PCP - General Internal Medicine 05/06/23
--- OUTSIDE RECORDS SUMMARY | 2024-12-29 14:40 | XMS_ITS | Data Portability ---
Author Organization [place] - [facility] [employer], Main Office Address [address] [place] [address] Care Team Providers Care Pullman Clerk Name Role Phone PASQUALE PAGAN Primary Care Provider [phone] PASQUALE PAGAN Referring Provider Assessment Encounter Date Assessment Date Assessment LastModified by Organization Details LastModified Time 03/02/2023 03/02/2023 Patient presents back and leg pain right. Pain is localized to the sacroiliac region worse with activity somewhat relieved by rest. He has had healthcare architect however the pain persists he is tender [...] will probably try more conservative treatment. Discussed. [email or web address] Not available 03/30/2023 10:25:47 Plan of Treatment Reminders Order Date Submit Date Provider Last Modified By Organization Details Last Modified Time Details Appointments None recorded. Lab None recorded. Referral physical therapist referral - please contact patient to schedule 2022 023 [facility] [place] [facility], [address], [place], [address], 11:05:23 Procedures injection/ aspiration joint/burs a (PROC) - in office procedure, administer ed by provider 2022 023 [email or web address] In-Office Order, Internal Use Only DO Not Attach Compendium DO Not Attach Compendium, Do Not Delete/merge, [id number] 10:27:47 Surgeries None recorded. Imaging None recorded. Medication Orders Kenalog 10 mg/mL suspension for injection [address] [facility], [address] [place], [address], 10:29:42 ropivacain e (PF) 5 mg/mL (0.5 %) injection solution [address] [facility], [address] [place], [address], 3 10:29:42 prednisone 10 mg tablets in a dose pack [address], [address] [place], [address], 10:41:09 Patient TargetsNo targets recorded. Patient InstructionsNo instructions recorded. Reason for Referral Physical Therapist Referral for Pain in right hip joint please contact patient to schedule Referring Physician: Dustin Anna, Orthopedic Surgery, Encounter Date: 03/02/2023 Problems Name Problem SNOMED Code Status Onset Date Resolution Date Notes Provider Name and Address Organization Details Recorded Time Disorder of shoulder 692271032 Active Not Available [facility] 03/01/202 3 13:12:53 Shoulder joint pain 931403116 Active Not Available [facility] 3 13:12:53 Pain of left hip joint 8180725982666 00 Active 2022 Veronica RazoELIOT, [facility] D[facility] 3 09:55:41 Pain in right hip joint 2968424368709 02 Active 2022 Tabitha DERIK Weiner null, [facility] [employer] [facility] 3 10:26:39 Pain in right sacroiliac joint 2771395448030 9107 Active 2022 Dustin Anna MD [address] [employer], [address], [place], [address] , [facility] [employer] [facility] [employer] [facility] 3 10:40:42 Notes:Some problems listed i n Document: #[id number] could not be added to this patient's chart. Please review this document and add these problems to the patient's chart manually as needed. Problem Notes None recorded. Procedures Surgical History Date Name Laterality Status Provider Name and Address Organization Details Recorded Time 3 Ortho - Cortisone Injection completed Dustin Anna MD [address], [address], [place], [address], [facility] [employer] [facility] [employer] [facility] 03/02/2023 10:39:25 Imaging Results None recorded. Procedure [...] 20 mg by injection route. 2022 active [facility]: 0003- 0494- 20 Not Available Not Available [...] 20 mg by injection route. 2022 active [facility] 34778 -064- 01 Not Available Not Available Not [...] Updated DateTime 03/02/2023 172.72 cm 21.6 kg/m2 49908.12 ELIOT Will [employer] 03/02/2023 09:54:11 Date Recorded Body height Body mass index (BMI) Body weight Provider Name and Address Organization Details Last Updated DateTime 03/30/2023 172.72 cm 21.6 kg/m2 11449.12 ELIOT [employer] 03/30/2023 10:03:01 Social History Question Answer Notes LastModified by Organizat ion Details LastModified Time Tobacco Smoking Status Never Smoker ELIOT Reyes [employer] 03/02/2023 09:54:44 What Is Your Level Of Alcohol Consumption? Moderate [email or web address] Information not available 03/02/2023 Sex: Unknown Functional Status None recorded. Mental Status None recorded. Family History Nothing Reported. Medical History Condition Response ARTHRITIS Y URINARY/BLADDER/KIDNEY PROBLEMS Y Past Encounters Encounter ID Performer Location Encounter Start Date Encounter Closed Date Diagnosis/Indication Diagnosis SNOMED-CT Code Diagnosis ICD10 Code Diagnosis Note [id number] Dustin Anna MD [facility] [place] [address] [place] [address] 03/02/2023 09:28:56 03/02/2023 10:32:24 Pain in right hip joint 5830054060 05377 M25.551 Pain in ri ght sacroiliac joint 9664769750 9728619 M53.3 [id number] Dustin Anna MD [facility] [place] [address] [place] [address] 03/30/2023 09:49:03 03/30/2023 10:43:31 Pain in right hip joint 9528508961 88847 M25.551 Pain in ri ght sacroiliac joint 7397664819 0654094 M53.3 Health Concerns Section Related Observation LastModified by Organization Detai ls LastModified Time None Recorded Concern Status LastModified by Organization Details LastModified Time None Recorded Advance Directives Directive None Recorded Payers Encounter Date Sequence Insurance Name Policy Number Policy Sapp Covered Member ID Sapp Member ID Guarantor Name 03/02/2023 1 [facility] (MEDICARE REPLACEMENT/A DVANTAGE - PPO) [id number] Pete Gokul [id number] Indra Hodgson 03/30/2023 1 [facility] (MEDICARE REPLACEMENT/A DVANTAGE - PPO) [id number] Pete Gokul [id number] Indra Hodgson Notes Date Note Type Note Provider Name and Address Organization Details Recorded Time 03/02/2023 text/html Back PainReporte d bypatient.Location :pain radiating to the buttocks Quality:dull Severity:worsening Duration:chronic Context:unusual activity; prior back problems Associated Symptoms:no fever; no weak limbs; no numbness of the legs/feet; no tingling; no incontinence; no shortness of breath Dustin Anna MD [address] [facility], [place], [address], [employer] [facility] 03/02/2023 10:41:04 03/30/2023 text/html Patient returns sacroiliac pain left. He has really had a nice response to conservative treatment and the pain is tolerable. He always has some pain in the area however had a recent exacerbation which has been calmed down treatment we have given him. Dustin Anna MD [address] [facility], [place], [address], [employer] [facility] 03/30/2023 10:26:07
[2024-12-29 14:46] LABS: Prostate Specific Antigen < 0.1 ng/mL (< OR = 4.0)
[2024-12-29 15:14] LABS: Alanine Aminotransferase 42 U/L (6-50); Albumin Level 3.9 g/dL (3.5-5.1); Alkaline Phosphatase 79 U/L (38-126); Anion Gap 7 mmol/L (4-12); Aspartate Amino Transferase 64 U/L (17-59); Bilirubin,Total 0.4 mg/dL (0.2-1.3); Blood Urea Nitrogen 10 mg/dL (9-20); Calcium 9.1 mg/dL (8.4-10.2); Carbon Dioxide 28 mmol/L (22-30); Chloride 108 mmol/L (98-107); Estimated Glomerular Filt Rate 39; Glucose 95 mg/dL (65-110); Potassium 3.3 mmol/L (3.4-5.0); Sodium 143 mmol/L (137-145)
== END 2024-12-29 13:33 | disposition home or self-care (01) ==
PROVIDERS: PCP Internal Medicine; Visit Provider Internal Medicine Hematology & Oncology
DX: C61 Malignant neoplasm of prostate (principal); C79.51 Secondary malignant neoplasm of bone
CPT/HCPCS: 36415; 80053; 84153; 85025; 99212; G0463

== ENCOUNTER 2025-03-06 13:22 | Outpatient (CLI) | payer MEDICARE, SELFPAY ==
--- OUTSIDE RECORDS SUMMARY | 2025-03-06 13:47 | XMS_ITS | Referral Summary ---
Author Organization [facility] [address] Address [address] [place] [address] Care Team Providers Care County Superintendent Of Schools Name Role Phone Moy Fowler MD Primary Care Provider [phone] Encounters Date Type Department Care Team Description 03/03/[address] [facility] [address] [facility] [address] [place] [address] Nina Rangel, BAG BLEACHER 03/01/2025 Telephone [facility] [place] [address] [facility] [facility] [address] [place] [address] Adriana Kaur, A 12/29/2024 10:30 AM CDT Office Visit [facility] [address] [place] [address] Seb Lee MD Coronary artery disease involving [place] coronary artery of [place] heart without angina pectoris (Primary Dx); NICM [...] with breakfast Active memantine (NAMENDA) 10 mg tabletIndicatio ns:Moderate to Severe Alzheimer's Type Dementia Take 1 tablet (10 mg total) by mouth 2 (two) times a day 180 tablet 3 4 04/30/20 25 Active rosuvastatin (CRESTOR) 40 mg tabletIndicatio ns:Coronary artery disease involving [place] coronary artery of [place] heart without angina pectoris,Hyperl ipidemia LDL goal <70 Take 1 tablet by mouth once daily 90 tablet 1 5 Active Active Problems Problem Noted Date Diagnosed Date Alzheimer's disease 07/28/2023 Assessment & Plan (05/05/2024 8:41 AM CDT): Stop Namzaric (wt loss), start Namenda/memantine 10 mg BID Increase calories Stay active socially and physically Chest tightness 01/06/2019 Pulmonary HTN 12/22/2017 Coronary artery disease invo lving [place] coronary artery of [place] heart without angina pectoris 07/07/2017 NICM (nonischemic [...] on file Legal 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 MEDICARE ADVANTAGE [facility] MEDICARE ADVANTAGE [facility] MEDICARE ADVANTAGE Care Teams [place] Superintendent [place] Schools Relationship Specialty Start Date End Date Moy Fowler MD [address] [facility] MEDICINE [place], [place] [id number] PCP - General 02/25/12
--- OUTSIDE RECORDS SUMMARY | 2025-03-06 13:47 | XMS_ITS | Data Portability ---
Author Organization [place] [facility] [employer], Main Office Address [address] [place] [address] Care Team Providers Care Loading Shovel Oiler Name Role Phone PASQUALE PAGAN Primary Care Provider PASQUALE PAGAN Referring Provider [phone] Assessment Encounter Date Assessment Date Assessment LastModified by Organization Details LastModified Time 03/02/2023 03/02/2023 Patient presents back and leg pain right. Pain is localized to the sacroiliac region worse with activity somewhat relieved by rest. He has had healthcare liaison however the pain persists he is tender [...] will probably try more conservative treatment. Discussed. [email or web address] Not available 03/30/2023 10:25:47 Plan of Treatment Reminders Order Date Submit Date Provider Last Modified By Organization Details Last Modified Time Details Appointments None recorded. Lab None recorded. Referral physical therapist referral - please contact patient to schedule 2022 023 [facility] [place] [facility], [address], [place], [address], 11:05:23 Procedures injection/ aspiration joint/burs a (PROC) - in office procedure, administer ed by provider 2022 [email or web address] In-Office Order, Internal Use Only DO Not Attach Compendium DO Not Attach Compendium, Do Not Delete/merge, [address] 10:27:47 Surgeries None recorded. Imaging None recorded. Medication Orders Kenalog 10 mg/mL suspension for injection [address], [address] [place], [address], 3 10:29:42 ropivacain e (PF) 5 mg/mL (0.5 %) injection solution [address] [facility], [address] [place], [address], 3 10:29:42 prednisone 10 mg tablets in a dose pack [address], [address] [place], [address], 10:41:09 Patient TargetsNo targets recorded. Patient InstructionsNo instructions recorded. Reason for Referral Physical Therapist Referral for Pain of right hip joint please contact patient to schedule Referring Physician: Dustin Anna, Orthopedic Surgery, Encounter Date: 03/02/2023 Problems Name Problem SNOMED Code Status Onset Date Resolution Date Notes Provider Name and Address Organization Details Recorded Time Disorder of shoulder 965757352 Active Not Available [facility] 03/01/202 3 13:12:53 Shoulder joint pain 592865702 Active Not Available [employer] 3 13:12:53 Pain of left hip joint 7108328301308 00 Active 2022 Veronica ELIOT Razo, [facility] [employer] [facility] 3 09:55:41 Pain of right hip joint 8774305757139 02 Active 2022 Tabitha Weiner CNA null, [facility] [employer] [facility] 3 10:26:39 Pain in right sacroiliac joint 7728607486648 9107 Active 2022 Dustin Anna MD [address] [facility], [address], [place], [address] , [facility] [employer] [facility] 3 10:40:42 Notes:Some problems listed i n Document: #[id number] could not be added to this patient's chart. Please review this document and add these problems to the patient's chart manually as needed. Problem Notes None recorded. Procedures Surgical History Date Name Laterality Status Provider Name and Address Organization Details Recorded Time 3 Ortho - Cortisone Injection completed Dustin Anna MD [address] [facility], [address], [place], [address], [facility] [employer] [facility] 03/02/2023 10:39:25 Imaging Results None recorded. [...] 20 mg by injection route. 2022 active [facility]: 0003- 0494- 20 Not Available Not Available [...] 20 mg by injection route. 2022 active [facility] 26970 -064- 01 Not Available Not Available Not [...] Updated DateTime 03/02/2023 172.72 cm 21.6 kg/m2 57136.ELIOT Rizvi [facility] [employer] [facility] 03/02/2023 09:54:11 Date Recorded Body height Body mass index (BMI) Body weight Provider Name and Address Organization Details Last Updated DateTime 03/30/2023 172.72 cm 21.6 kg/m2 10587.ELIOT Rizvi [facility] [employer] [facility] 03/30/2023 10:03:01 Social History None recorded. Functional Status Question Answer Note LastModified by Organization D etails LastModified Time What is your level of alcohol consumption? Moderate Information not available 03/02/2023 Mental Status None recorded. Family History Nothing Reported. Medical History Condition Response ARTHRITIS Y URINARY/BLADDER/KIDNEY PROBLEMS Y Past Encounters Encounter ID Performer Location Encounter Start Date Encounter Closed Date Diagnosis/Indication Diagnosis SNOMED-CT Code Diagnosis ICD10 Code Diagnosis Note [id number] Dustin Anna MD [facility] [place] [address] [place] [address] 03/02/2023 09:28:56 03/02/2023 10:32:24 Pain of right hip joint [id number] 62932 M25.551 Pain in ri ght sacroiliac joint 7488408005 8197743 M53.3 [id number] Dustin Anna MD [facility] [place] [address] [place] [address] 03/30/2023 09:49:03 03/30/2023 10:43:31 Pain of right hip joint 9305332822 40262 M25.551 Pain in ri ght sacroiliac joint 6005549553 2892863 M53.3 Health Concerns Section Related Observation LastModified by Organization Detai ls LastModified Time None Recorded Concern Status LastModified by Organization Details LastModified Time None Recorded Advance Directives Directive None Recorded Payers Insurance Date Sequence Insurance Name Policy Number Policy Sapp Covered Member ID Sapp Member ID Guarantor Name 03/02/2023 1 [place] Indra Hodgson [id number] Indra Hodgson 03/02/2023 2 [place] [id number] Indra Hodgson [id number] Indra Hodgson 04/06/2023 1 [facility] (MEDICARE REPLACEMENT/A DVANTAGE - PPO) [id number] Indra Hodgson [id number] Indra Hodgson Notes Date Note Type Note Provider Name and Address Organization Details Recorded Time 03/02/2023 text/html Back PainReporte d bypatient.Location :pain radiating to the buttocks Quality:dull Severity:worsening Duration:chronic Context:unusual activity; prior back problems Associated Symptoms:no fever; no weak limbs; no numbness of the legs/feet; no tingling; no incontinence; no shortness of breath Dustin Anna MD [address] [address] [address], [place], [address], [employer] [facility] [employer] 03/02/2023 10:41:04 03/30/2023 text/html Patient returns sacroiliac pain left. He has really had a nice response to conservative treatment and the pain is tolerable. He always has some pain in the area however had a recent exacerbation which has been calmed down treatment we have given him. Dustin Anna MD [address], [place], [address], [employer] [facility] [employer] [facility] 03/30/2023 10:26:07
--- OUTSIDE RECORDS SUMMARY | 2025-03-06 13:47 | XMS_ITS | Clinical Summary ---
Author Organization [facility] Christelle Vera Address [address] [place] [address] Care Team Providers Care Vending Machine Repairer Name Role Phone Moy Fowler MD Primary [...] Encounters Date Type Department Care Team Description 02/21/2025 External Device Data STL ABSTRACTION Provider, Abstract 01/31/2025 External Device Data [facility] ABSTRACTION Provider, Abstract 01/26/2025 External Device Data [place] ABSTRACTION Provider, Abstract 01/25/2025 External Device Data [place] ABSTRACTION Provider, Abstract 01/24/2025 External Device Data ST[place] ABSTRACTION Provider, Abstract 01/17/2025 11:00 AM CDT Office Visit [facility] - [place] [address] [place] [address] Jorge Luis Salazar MD Prostate 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) (Primary Dx) 01/13/2025 Orders Only [facility] - [place] [address] [place] [address] Jorge Luis Salazar MD 01/02/2025 Orders Only [facility] - [place] [address] [place] [address] Jorge Luis Salazar MD 12/30/2024 Orders Only [facility] - [place] [address] [place] [address] Jorge Luis Salazar MD from Last 3 [...] Sign Reading Time Taken Comments Blood Pressure 133/75 01/17/2025 10:52 AM CDT Pulse 50 01/17/2025 10:49 AM CDT Temperature 36.3 C (97.3 F) 01/17/2025 10:49 AM CDT Respiratory Rate 15 01/17/2025 10:49 AM CDT Oxygen Saturation 94% 01/17/2025 10:49 AM CDT Inhaled Oxygen Concentration - - Weight 65.5 kg (144 lb 6.4 oz) 01/17/2025 10:49 AM CDT Height 175.3 cm (5' 9) 05/14/2023 1:38 PM CDT Body Mass Index 21.32 05/14/2023 1:38 PM CDT Plan of Treatment Upcoming Encounters Date Type Department Care Team (Late st Contact Info) Description 04/20/2025 2:30 PM CDT Office Visit [facility] - [place] [address] [facility] [address] [place] [address] Jorge Luis Salazar MD [address] [facility] [address] [place] [address] Health Maintenance Due Date Last Done Comments DTAP/TDAP/TD VACCINES (1 - Tdap) 1964 PNEUMOCOCCAL VACCINE 50+ YEARS (1 of 2 - PCV) 03/29/19 62 ZOSTER VACCINE (1 of 2) 1964 RSV VACCINE (60+ or ) (1 - 1-dose 75+ series) 2018 INFLUENZA VACCINE (#1) 2024 06/07/2023 Procedures Procedure Name Priority Date/Time Associated Diagnosis Comments COMPREHENSIVE METABOLIC PANEL Routine 01/12/2025 3:53 PM CDT COMPREHENSIVE METABOLIC PANEL Routine 12/29/2024 11:36 AM CDT CBC MIXED CELL DIFFERENTIAL Routine 12/29/2024 9:09 AM CDT from Last 3 Months Results * COMPREHENSIVE METABOLIC PANEL (01/12/2025 3:53 PM CDT) Only the most recent of2 resultswithin the time period is included. Blood us Jorge Luis Salazar MD CHEMISTRY ORDERABLES Final Resu lt * CBC MIXED CELL DIFFERENTIAL (12/29/2024 9:09 AM CDT) Blood Jorge Luis Salazar MD HEMATOLOGY ORDERABLES Final Res ult from Last 3 Months Insurance Care Teams Vending Machine Repairer Relationship Specialty Start Date End Date Moy Fowler MD [address] [place] [address] PCP - General Internal Medicine 05/06/23
--- OUTSIDE RECORDS SUMMARY | 2025-03-06 13:47 | XMS_ITS | Clinical Summary ---
Author Organization [facility] [address] Address [address] [place] [address] Care Team Providers Care Wave Soldering Machine Operator Name Role Phone Moy Fowler MD Primary Care Provider [phone] Allergies No known active allergies Medications multivitamin [...] 40 mg tabletIndicatio ns:Coronary artery disease involving [place] coronary artery of [place] heart without angina pectoris,Hyperl ipidemia LDL goal [...] HTN 12/22/2017 Coronary artery disease invo lving [place] coronary artery [place] heart without angina pectoris 07/07/2017 NICM (nonischemic cardiomyopathy) 07/07/2017 Hyperlipidemia LDL goal <70 07/07/2017 Gastroesophageal reflux disease without esophagi tis 07/07/2017 [place] (obstructive sleep apnea) 07/07/2017 Encounters Date Type Department Care Team Description 03/03/2025 Telephone [facility] [address] [facility] [address] [place] [address] Nina Rangel, AIR POLLUTION ENGINEER 03/01/2025 Telephone [facility] [address] [facility] [address] [place] [address] Adriana Kaur, A 12/29/2024 10:30 AM CDT Office Visit 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 Gender Identity Not on file Sexual Orientation [...] vaccine 65+ Completed 018, 06/27/2017, 07/03/2014 Insurance [facility] MEDICARE ADVANTAGE Member Subscriber Plan / Payer (Ef fective 2020-Present) Name:Indra Hodgson Relation to Subscriber:Self Name:Gokul Pete Payer ID:[id number] (NAIC) Type:[facility] MED[facility] Address: [place] [phone] [facility] MEDICARE ADVANTAGE MEDICARE ADVANTAGE Care Teams Wave Soldering Machine Operator Relationship Specialty Start Date End Date Moy Fowler MD [address] [place] [address] PCP - General 02/25/12
[2025-03-06 13:48] LABS: Basophils Percent Auto 0.6 % (0.2-1.2); Eosinophils Absolute Auto 0.1 K/mm3 (0-0.3); Eosinophils Percent Auto 2.7 % (0-4.4); Hematocrit 38.1 % (42.0-52.0); Hemoglobin 11.9 g/dL (14.0-18.0); Immature Granulocyte Absolute 0.02 K/mm3 (0.00-0.031); Immature Granulocyte Percent A 0.4 % (0-0.5); Lymphocytes Absolute Auto 0.79 K/mm3 (0.9-3.2); Lymphocytes Percent Auto 16.2 % (18.3-44.2); Mean Corpuscular HGB Conc 31.2 g/dl (32-36); Mean Corpuscular Hemoglobin 29.8 pg (26-34); Mean Corpuscular Volume 95.5 fl (80-100); Mean Platelet Volume 10.5 fl (7.4-10.4); Monocytes Absolute Auto 0.4 K/mm3 (0.1-0.6); Neutrophils Absolute Auto 3.5 K/mm3 (1.3-6.7); Neutrophils Percent Auto 71.1 % (45.5-73.1); Platelet Count Result 180 k/mm3 (150-375); Red Blood Count 3.99 M/mm3 (4.6-6.20); Red Cell Distribution Width 13.7 % (11.5-14.5); White Blood Count 4.9 K/mm3 (4.5-10.0)
[2025-03-06 14:07] LABS: Alanine Aminotransferase 58 U/L (6-50); Albumin Level 3.8 g/dL (3.5-5.1); Alkaline Phosphatase 82 U/L (38-126); Anion Gap 7 mmol/L (4-12); Aspartate Amino Transferase 86 U/L (17-59); Bilirubin,Total 0.3 mg/dL (0.2-1.3); Blood Urea Nitrogen 11 mg/dL (9-20); Calcium 8.8 mg/dL (8.4-10.2); Carbon Dioxide 21 mmol/L (22-30); Chloride 114 mmol/L (98-107); Estimated Glomerular Filt Rate 47; Glucose 135 mg/dL (65-110); Potassium 3.8 mmol/L (3.4-5.0); Sodium 142 mmol/L (137-145); Total Protein 6.9 g/dL (6.3-8.2)
== END 2025-03-06 13:23 | disposition home or self-care (01) ==
LOC: ANHLAB 13:26
PROVIDERS: PCP Internal Medicine; Visit Provider Internal Medicine
DX: R35.0 Frequency of micturition (principal); F09 Unspecified mental disorder due to known physiological condition
CPT/HCPCS: 36415; 80053; 85025